=== PATIENT | female | born 1975 | race Caucasian/White ===

== ENCOUNTER 2018-11-29 07:57 | Observation (INO) | payer BC ==
[2018-11-29] MEDS ORDERED: ASPIRIN 81 MG PO STA (08:14)
--- NOTE | 2018-11-29 08:35 | ED ---
Chest Pain HPI - General Chief Complaint: Chest Pain Stated Complaint: chest pain Time Seen by Provider: 11/29/18 08:01 Source: patient, RN notes reviewed Mode of arrival: ambulatory Limitations: no limitations - History of Present Illness Initial Comments: 43-year-old female presents emergency Department with chief complaint of chest pressure. Patient states that she woke up and felt anxious and felt like something was sitting on her. Patient states that it only lasted less than a minute. Patient states that she is symptom-free at this time. Patient has no history of hypertension, hyperlipidemia, diabetes or smoking history. Patient states that she does take Vyvanse and omeprazole daily. Patient states she's had symptoms of waking up and feeling anxious in the past but never pressure like this. She denies any history of DVT or PE. No recent long distance traveling. Denies any diaphoretic episodes denies headache or dizziness. - Related Data Home Medications Medication Instructions Recorded Confirmed Lisdexamfetamine Dimesylate 70 mg PO QAM 05/27/16 11/29/18 [Vyvanse] Ibuprofen [Motrin Ib] 400 mg PO Q6H PRN 11/29/18 11/29/18 Omeprazole 20 mg PO DAILY 11/29/18 11/29/18 Allergies Allergy/AdvReac Type Severity Reaction Status Date / Time No Known Allergies Allergy Verified 11/29/18 08:45 Review of Systems ROS Statement: Those systems with pertinent positive or pertinent negative responses have been documented in the HPI. ROS Other: All systems not noted in ROS Statement are negative. EKG Findings - EKG Comments: EKG Findings:: EKG performed at 8:08 normal sinus rhythm with a rate of 97 SD 136 QRS 68 QT/QTC 336/426 Past Medical History Additional Past Medical History / Comment(s): pneumothorax History of Any Multi-Drug Resistant Organisms: None Reported Additional Past Surgical History / Comment(s): pneumothorax chest tube place Past Psychological History: Anxiety, Depression Smoking Status: Never smoker Past Alcohol Use History: None Reported Past Drug Use History: None Reported General Exam Limitations: no limitations General appearance: alert, in no apparent distress Head exam: Present: atraumatic, normocephalic, normal inspection Eye exam: Present: normal appearance, PERRL, EOMI. Absent: scleral icterus, conjunctival injection, periorbital swelling ENT exam: Present: normal exam, normal oropharynx, mucous membranes moist Neck exam: Present: normal inspection, full ROM. Absent: tenderness, meningismus, lymphadenopathy Respiratory exam: Present: normal lung sounds bilaterally. Absent: respiratory distress, wheezes, rales, rhonchi, stridor Cardiovascular Exam: Present: normal rhythm, tachycardia, normal heart sounds. Absent: systolic murmur, diastolic murmur, rubs, gallop, clicks GI/Abdominal exam: Present: soft, normal bowel sounds. Absent: distended, tenderness, guarding, rebound, rigid Extremities exam: Present: pedal edema Skin exam: Present: warm, dry, intact, normal color. Absent: rash Course Vital Signs 11/29/18 11/29/18 07:58 09:20 Temperature 98.7 F Pulse Rate 102 H 95 Respiratory 20 18 Rate Blood Pressure 159/117 147/110 O2 Sat by Pulse 99 98 Oximetry Chest Pain MDM - [facility] 43-year-old female presents for chest pain. Patient will be admitted for cardiac evaluation, started on heparin. Patient did have lab work, EKG and chest x-ray. Patient does have elevated BP which is abnormal for patient. Disposition Clinical Impression: Chest pain, Hypertension Disposition: ADMITTED IP TO THIS HOSP Condition: Stable Referrals: Raymon Roca MD [Primary Care Provider] - 1-2 days
[2018-11-29 08:39] LABS: Basophils % (A) 0 %; Eosinophils # (A) 0.2 k/uL (0-0.7); Eosinophils % (A) 2 %; HGB 13.3 gm/dL (11.4-16.0); Lymphocytes # (A) 1.3 k/uL (1.0-4.8); Lymphocytes % (A) 16 %; MCH 29.5 pg (25.0-35.0); MCHC 34.1 g/dL (31.0-37.0); MCV 86.5 fL (80.0-100.0); Mean Platelet Volume 6.8; Monocytes # (A) 0.5 k/uL (0-1.0); Monocytes % (A) 6 %; Neutrophils # (A) 5.8 k/uL (1.3-7.7); Neutrophils % (A) 73 %; Platelet Count 276 k/uL (150-450); RBC 4.51 m/uL (3.80-5.40); RDW 13.8 % (11.5-15.5); WBC 7.8 k/uL (3.8-10.6)
--- NOTE | 2018-11-29 08:47 | XR ---
EXAMINATION TYPE: XR chest 2V DATE OF EXAM: 11/29/2018 HISTORY: Chest Pain. REFERENCE: Previous study dated 05/27/2016. FINDINGS: The lungs remain clear. Pleural space are clear. The heart is not enlarged. IMPRESSION: NORMAL CHEST.
[2018-11-29 08:52] LABS: ALT 17 U/L (9-52); AST 15 U/L (14-36); Albumin 3.9 g/dL (3.5-5.0); Alkaline Phosphatase 117 U/L (38-126); Anion Gap 9 mmol/L; Blood Urea Nitrogen 16 mg/dL (7-17); Calcium 10.6 mg/dL (8.4-10.2); Carbon Dioxide 21 mmol/L (22-30); Chloride 109 mmol/L (98-107); Glucose 97 mg/dL (74-99); Magnesium 2.1 mg/dL (1.6-2.3); Potassium 4.3 mmol/L (3.5-5.1); Sodium 139 mmol/L (137-145); Total Bilirubin 0.2 mg/dL (0.2-1.3); Total Protein 6.8 g/dL (6.3-8.2)
[2018-11-29 08:53] LABS: D-Dimer 0.24 mg/L FEU (<0.60); Partial Thromboplastin Time 26.3 sec (22.0-30.0)
[2018-11-29 08:57] LABS: Creatine Kinase 29 U/L (30-135)
[2018-11-29 09:09] LABS: Creatine Kinase MB <0.2 ng/mL (0.0-2.4); Troponin I <0.012 ng/mL (0.000-0.034)
[2018-11-29] MEDS ORDERED: cloNIDine HCL 0.1 MG TAB PO STA (10:21)
[2018-11-29] MEDS ORDERED: HEPARIN SODIUM,PORCINE 5,000 UNIT/ML 1 ML VIAL IV ONE (10:25)
[2018-11-29] MEDS ORDERED: NITROGLYCERIN SL TABS 0.4 MG TAB SUBLINGUAL PRN (10:25)
[2018-11-29] MEDS ORDERED: HEPARIN SOD,PORK IN 0.45% NACL 25,000 UNIT in 0.45% NACL 1 250ML.BAG IV SCH (10:30)
[2018-11-29 13:58] VITALS: BMI 32.3
[2018-11-29 16:48] LABS: Creatine Kinase 24 U/L (30-135)
[2018-11-29 17:01] LABS: Creatine Kinase MB <0.2 ng/mL (0.0-2.4); Troponin I <0.012 ng/mL (0.000-0.034)
[2018-11-29] MEDS ORDERED: HYDROcodone/APAP 5-325MG 1 EACH TAB PO PRN (17:15)
[2018-11-29] MEDS ORDERED: ALPRAZolam 0.25 MG TAB PO PRN (17:15)
[2018-11-29] MEDS ORDERED: ACETAMINOPHEN TAB 500 MG TAB PO PRN (17:15)
[2018-11-29] MEDS ORDERED: IBUPROFEN 400 MG TAB PO PRN (17:15)
[2018-11-29] MEDS ORDERED: TEMAZEPAM 15 MG CAP PO PRN (17:15)
[2018-11-29 21:34] LABS: Creatine Kinase 24 U/L (30-135)
[2018-11-29 21:48] LABS: Creatine Kinase MB 0.2 ng/mL (0.0-2.4); Troponin I <0.012 ng/mL (0.000-0.034)
--- NOTE | 2018-11-30 00:43 | HP ---
HISTORY AND PHYSICAL DATE OF SERVICE: 11/29/2018 I am covering for Dr. Roca. CHIEF COMPLAINT: Chest pain. HISTORY OF PRESENT ILLNESS: This 43-year-old woman with a past medical history of multiple medical problems including history of pneumothorax, history of anxiety, depression being followed by Dr. Roca in the outpatient setting complaining of chest pain. The patient had complaints of a pressure type of chest pain in the anterior left side of the chest, without much radiation. The patient came to [facility] and was admitted for further evaluation and treatment. Patient apparently had a family history of chest pain , family history of coronary artery disease. There is no history of fever, rigors. No history of headache, loss of consciousness or seizures. The patient also had this type of pressure pain in the past. Patient never had any cardiac workup previously. Cardiology evaluation in progress. PAST MEDICAL HISTORY: Pneumothorax, anxiety, depression. MEDICATIONS: Prior to admission include home medications: 1. Omeprazole 20 mg b.i.d. 2. Motrin 400 mg q.6h p.r.n. 3. Vyvanse 70 mg q.a.m.. ALLERGIES: None. FAMILY HISTORY: History of coronary artery disease and hypertension in the family. SOCIAL HISTORY: No history of smoking. No history of alcohol. REVIEW OF SYSTEMS: ENT: No diminished vision. No diminished hearing. CARDIOVASCULAR: As mentioned earlier. RESPIRATORY: As mentioned earlier. GI no nausea or vomiting. : No dysuria. NERVOUS SYSTEM: No numbness or weakness. ALLERGY/IMMUNOLOGY: No asthma or hayfever. MUSCULOSKELETAL: As mentioned earlier. HEMATOLOGY/ONCOLOGY: No history of anemia. ENDOCRINE: No history of diabetes or hypothyroidism. CONSTITUTIONAL: As mentioned earlier. Dermatology: Negative. Rheumatology: Negative. Psychiatry: As mentioned earlier. PHYSICAL EXAMINATION: GENERAL: Alert, oriented x3. VITAL SIGNS: Pulse 94, blood pressure 131/86, respiration 16, temperature 98.1, pulse ox 99% on room air. HEENT is conjunctivae normal. Oral mucosa moist. NECK is no jugular venous distention. No carotid bruit. No lymph node enlargement. CARDIOVASCULAR SYSTEM: S1, S2. RESPIRATORY: Breath sounds diminished in the bases. No rhonchi. No crackles. ABDOMEN: Soft, nontender. No mass palpable. LEGS: No edema. No swelling. NERVOUS SYSTEM: Higher functions as mentioned earlier. Moves all four extremities. Lymphatics: No lymph nodes palpable in the neck, axillae or groin. SKIN: No ulcer, no rash. No bleeding. LABS: CBC within normal limits. CO2 is 21 and calcium is 10.6. ASSESSMENT: 1. Chest pain, possible unstable angina. 2. Mild increased calcium. 3. History of pneumothorax. 4. History of anxiety and depression. RECOMMENDATIONS AND DISCUSSION: In this 43-year-old woman who presented with multiple complex medical issues, we will monitor the patient closely, unstable angina protocol, rule out myocardial infarction, cardiology consultation. Possible stress test. Guarded prognosis because of multiple complex medical issues. Further recommendations to follow. Keep the patient n.p.o. after midnight. Copy of dictation forwarded to Dr. Roca who is the primary physician. AXEL / RICARDO: [id number] / MTDD
[2018-11-30] MEDS ORDERED: PANTOPRAZOLE 40 MG TABLET PO SCH ×2 (07:30→09:00)
[2018-11-30 07:41] LABS: Basophils % (A) 1 %; Eosinophils # (A) 0.2 k/uL (0-0.7); Eosinophils % (A) 3 %; HCT 39.7 % (34.0-46.0); HGB 12.5 gm/dL (11.4-16.0); Lymphocytes # (A) 1.6 k/uL (1.0-4.8); Lymphocytes % (A) 23 %; MCH 27.6 pg (25.0-35.0); MCHC 31.5 g/dL (31.0-37.0); MCV 87.7 fL (80.0-100.0); Mean Platelet Volume 6.7; Monocytes # (A) 0.3 k/uL (0-1.0); Monocytes % (A) 5 %; Neutrophils # (A) 4.6 k/uL (1.3-7.7); Neutrophils % (A) 67 %; Platelet Count 300 k/uL (150-450); RBC 4.52 m/uL (3.80-5.40); WBC 6.8 k/uL (3.8-10.6)
[2018-11-30 07:54] LABS: Anion Gap 6 mmol/L; Blood Urea Nitrogen 11 mg/dL (7-17); Calcium 10.2 mg/dL (8.4-10.2); Carbon Dioxide 24 mmol/L (22-30); Chloride 111 mmol/L (98-107); Cholesterol 169 mg/dL (<200); Glucose 100 mg/dL (74-99); HDL Cholesterol 46 mg/dL (40-60); LDL Cholesterol,Calculated 85 mg/dL (0-99); Potassium 4.2 mmol/L (3.5-5.1); Sodium 141 mmol/L (137-145); Triglycerides 189 mg/dL (<150)
[2018-11-30 08:07] VITALS: RESP 18
--- NOTE | 2018-11-30 08:16 | P.HPIM ---
History of Present Illness H&P Date: 11/30/18 Chief Complaint: Chest pressure This is a 43-year-old white female with known history tension disorder who has struggled with depression in the past who states for the last several days that she's been waking up after falling asleep with chest pain. She states it is mainly fleeting but sometimes wakes her up. However she became much more concerned as she had an episode where she woke up in the morning and had chest pain with some radiation to the right axillary area. The patient came in after this for appropriate observation. The patient states history of hypertension and most of her family members. The patient has an underlying history of attention deficit disorder which is been fairly stable. Blood pressure my office fairly stable. No voiding difficulties. No significant diaphoresis. Pain was not necessary relieved by any medication and perform any consistent action. Review of Systems Constitutional: Denies chills, Denies fever Eyes: denies blurred vision, denies pain Ears, nose, mouth and throat: Denies headache, Denies sore throat Cardiovascular: Reports chest pain Gastrointestinal: Denies abdominal pain, Denies diarrhea, Denies nausea, Denies vomiting Genitourinary: Denies dysuria, Denies hematuria Musculoskeletal: Denies myalgias Past Medical History Additional Past Medical History / Comment(s): pneumothorax-20 years ago. History of Any Multi-Drug Resistant Organisms: None Reported Additional Past Surgical History / Comment(s): pneumothorax chest tube place Past Anesthesia/Blood Transfusion Reactions: No Reported Reaction, Unable to Obtain Past Psychological History: Anxiety, Depression Smoking Status: Never smoker Past Alcohol Use History: None Reported Past Drug Use History: None Reported - Past Family History Mother Family Medical History: Coronary Artery Disease (CAD), Hypertension Father Family Medical History: Myocardial Infarction (MS) Additional Family Medical History / Comment(s): at age 53. Medications and Allergies Home Medications Medication Instructions Recorded Confirmed Type Lisdexamfetamine Dimesylate 70 mg PO QAM 05/27/16 11/29/18 History [Vyvanse] Ibuprofen [Motrin Ib] 400 mg PO Q6H PRN 11/29/18 11/29/18 History Omeprazole 20 mg PO DAILY 11/29/18 11/29/18 History Allergies Allergy/AdvReac Type Severity Reaction Status Date / Time No Known Allergies Allergy Verified 11/29/18 08:45 Physical Exam Vitals: Vital Signs Temp Pulse Pulse Resp BP BP Pulse Ox 11/30/18 07:30 98.2 F 85 18 129/78 96 11/30/18 03:44 98.3 F 100 16 126/91 98 11/30/18 03:38 16 11/30/18 00:00 16 11/29/18 23:45 98.4 F 92 16 142/87 98 11/29/18 20:00 16 11/29/18 19:42 98.1 F 94 16 131/86 99 11/29/18 16:00 97.8 F 85 16 135/89 98 11/29/18 13:18 97.8 F 93 18 150/97 98 11/29/18 12:42 97.8 F 84 18 144/97 100 11/29/18 12:00 80 18 148/99 97 11/29/18 11:00 95 18 159/94 96 11/29/18 09:20 95 18 147/110 98 Intake and Output 11/29/18 11/30/18 11/30/18 22:59 06:59 14:59 Intake Total 317.992 Balance 317.992 Intake: Intake, IV Titration 57.992 Amount Heparin Sod,Pork in 0.45% 57.992 NaCl 25,000 unit In 0.45 % NaCl 1 250ml.bag @ 11 UNITS/KG/HR 9.97 mls/hr IV .Q24H [facility] Rx#: [id number] Oral 260 Other: # Voids 1 1 - Constitutional General appearance: no acute distress, obese - EENT Eyes: EOMI - Neck Neck: no lymphadenopathy - Respiratory Respiratory: bilateral: CTA - Cardiovascular Rhythm: regular Heart sounds: normal: S1, S2 Abnormal Heart Sounds: no S3 Gallop - Gastrointestinal General gastrointestinal: soft, no tenderness - Psychiatric Psychiatric: A&O x's 3, appropriate affect, intact judgment & insight Results CBC & Chem 7: 11/30/18 07:11 11/30/18 07:11 Labs: Abnormal Lab Results - Last 24 Hours (Table) 11/29/18 11/29/18 11/29/18 Range/Units 08:20 08:20 16:11 APTT (22.0-30.0) sec Chloride 109 H (98-107) mmol/L Carbon Dioxide 21 L (22-30) mmol/L Glucose (74-99) mg/dL Calcium 10.6 H (8.4-10.2) mg/dL Total Creatine Kinase 29 L 24 L (30-135) U/L Triglycerides (<150) mg/dL 11/29/18 11/29/18 11/30/18 Range/Units 16:11 20:34 07:11 APTT 51.8 H (22.0-30.0) sec Chloride 111 H (98-107) mmol/L Carbon Dioxide (22-30) mmol/L Glucose 100 H (74-99) mg/dL Calcium (8.4-10.2) mg/dL Total Creatine Kinase 24 L (30-135) U/L Triglycerides 189 H (<150) mg/dL 11/30/18 Range/Units 07:11 APTT 36.7 H (22.0-30.0) sec Chloride (98-107) mmol/L Carbon Dioxide (22-30) mmol/L Glucose (74-99) mg/dL Calcium (8.4-10.2) mg/dL Total Creatine Kinase (30-135) U/L Triglycerides (<150) mg/dL Thrombosis Risk Factor Assmnt - Choose All That Apply Any of the Below Risk Factors Present?: No Other congenital or acquired thrombophilia - If yes, enter type in comment: No Assessment and Plan (1) History of attention deficit disorder Current Visit: Yes Status: Acute Code(s): Z86.59 - PERSONAL HISTORY OF OTHER MENTAL AND BEHAVIORAL DISORDERS SNOMED Code(s): 510668406 (2) Chest pain Current Visit: Yes Status: Acute Code(s): R07.9 - CHEST PAIN, UNSPECIFIED SNOMED Code(s): 00169185 (3) Hypertension Current Visit: Yes Status: Acute Code(s): I10 - ESSENTIAL (PRIMARY) HYPERTENSION SNOMED Code(s): 71772649 Plan: Reconcile medications as necessary. Rule out myocardial infarction. Appreciate cardiology input. Watch blood pressure closely Probable stress testing given her family history of hypertension. See orders otherwise. Time with Patient: Greater than 30
[2018-11-30] MEDS ORDERED: ASPIRIN 325 MG TAB PO SCH (09:00)
[2018-11-30] MEDS ORDERED: NON-FORMULARY DRUG (Lisdexamfetamine Dimesylate [Vyvanse] 70 MG) PO SCH (09:00)
[2018-11-30 12:30] VITALS: BP 136/90; PULSE 112; TEMP 98
--- NOTE | 2018-11-30 14:17 | CONS ---
CONSULTATION This is a 43-year-old lady who has had some element of anxiety as well. She also has a question of attention deficit disorder and takes Vyvanse 70 mg every morning and also omeprazole for possible gastroesophageal reflux disease. She is usually reasonably active. Does not have any significant risk factors other than a family history of premature CAD and some anxiety disorder. She developed an episode when she described it as a heavy pressure in the chest that lasted maybe less than 30 seconds. Then later on, she felt very anxious and had episodes of what she described as a tightness and pressure in the left arm and felt anxious and came into the hospital. After arrival, she was free of any symptoms. She has had normal troponins. She is resting comfortably. Her blood pressure was elevated when she came in, but it has normalized now. She is not hypertensive and has not had any elevated blood pressure issues. The last pressure here was about 140/80, and when we examined her, it was more in the range of 130/80. She is resting comfortably without symptoms at the time of my evaluation. PAST MEDICAL HISTORY: Remarkable for some attention deficit disorder type picture and also has had some anxiety issues. No hypertension, diabetes, myocardial infarction or CVA. The patient does have a family history of premature CAD. LAB DATA: Revealed the troponins are normal. Renal function is normal. D-dimer is also normal. Hemoglobin and platelet count were in the normal range. PHYSICAL EXAMINATION: Blood pressure is about 128/78, pulse rate is about 70 per minute and regular. HEENT unremarkable. Fundus was not examined by me. Neck is supple. No JVD. I do not hear a carotid bruit. There is no thyromegaly. Heart exam reveals S1, S2 heard normally without a rub murmur or gallop. Lungs are clear. Abdomen is soft, nontender. Lower extremities reveal normal pulses. No edema. Central nervous system is normal. EKG revealed a sinus mechanism without any acute changes. IMPRESSION: 1. Atypical chest pain. 2. Anxiety. 3. Question of attention deficit disorder on amphetamine preparation. RECOMMENDATIONS: I am recommending that we will perform a regular stress test and echo and if these are normal she can be discharged and I have advised her to talk to her PCP regarding the continued need for her amphetamine preparation that she is currently taking. Thank you very much for the consult. MMODL / IJN: [id number] /
--- NOTE | 2018-12-01 07:09 | EST ---
EXERCISE STRESS DATE OF SERVICE: 11/30/2018 AGE: 43 SEX: Female HT: 66" WT: 201 PROTOCOL: Patric STAGE: II DURATION OF EXERCISE: 6 minutes HEART RATE REST: 92 BLOOD PRESSURE REST: 126/58 MAXIMUM HEART RATE ACHIEVED: 160 MAXIMUM BLOOD PRESSURE: 183/108 85% MPHR: 152 100% MPHR: 175 METS: 7.3 INDICATIONS: Chest pain. CLINICAL INFORMATION: Baseline EKG revealed normal sinus rhythm without significant ST-T changes. Patient walked for 6 minutes on a standard Patric protocol, achieved a maximal heart rate of 160 beats per minute which is more than 85% of predicted maximal. She developed fatigue and shortness of breath but did not have angina. EKG did not reveal any ST-segment changes to indicate ischemia. By EKG criteria, this is a negative stress test with fair exercise capacity. There was no angina or arrhythmia. AXEL / UNIQUEN: [id number] /
--- NOTE | 2018-12-01 12:49 | ECHOF ---
Referral Reason:chest pain MEASUREMENTS -------- HEIGHT: 167.6 cm WEIGHT: 91.2 kg BP: 129/78 RVIDd: 2.5 cm (< 3.3) IVSd: 1.2 cm (0.6 - 1.1) LVIDd: 3.7 cm (3.9 - 5.3) LVPWd: 1.3 cm (0.6 - 1.1) IVSs: 1.4 cm LVIDs: 2.4 cm LVPWs: 1.4 cm LAESV Index (A-L): 10.01 ml/m Ao Diam: 2.9 cm (2.0 - 3.7) AV Cusp: 1.6 cm (1.5 - 2.6) LA Diam: 3.1 cm (2.7 - 3.8) EPSS: 0.4 cm MV E Gume: 0.62 m/s MV DecT: 246 ms MV A Gume: 0.75 m/s MV E/A Ratio: 0.83 RAP: 5.00 mmHg RVSP: 33.96 mmHg MV EF SLOPE: 126.25 mm/s (70 - 150) MV EXCURSION: 1.06 cm (> 18.000) FINDINGS -------- Sinus rhythm. This was a technically adequate study. The left ventricular size is normal. There is mild concentric left ventricular hypertrophy. Overa ll left ventricular systolic function is normal with, an EF between 55 - 60 %. The right ventricle is normal in size and function. Normal LA size by volume 22+/-6 ml/m2. The right atrium is normal in size. The aortic valve is trileaflet, and appears structurally normal. No aortic stenosis or regurgitation. The mitral valve is normal. There is trace mitral regurgitation. Trace tricuspid regurgitation present. There is borderline pulmonary hypertension. The right vent ricular systolic pressure, as measured by Doppler, is 33.96mmHg. Trace/mild (physiologic) pulmonic regurgitation. The aortic root size is normal. Normal inferior vena cava with normal inspiratory collapse consistent with estimated right atrial pre ssure of 5 mmHg. There is no pericardial effusion. CONCLUSIONS -------- 1. Sinus rhythm. 2. This was a technically adequate study. 3. The left ventricular size is normal. 4. There is mild concentric left ventricular hypertrophy. 5. Overall left ventricular systolic function is normal with, an EF between 55 - 60 %. 6. Normal LA size by volume 22+/-6 ml/m2. 7. The aortic valve is trileaflet, and appears structurally normal. No aortic stenosis or regurgitati on. 8. There is trace mitral regurgitation. 9. Trace tricuspid regurgitation present. 10. There is borderline pulmonary hypertension. 11. The right ventricular systolic pressure, as measured by Doppler, is 33.96mmHg. 12. Trace/mild (physiologic) pulmonic regurgitation. 13. The aortic root size is normal. 14. There is no pericardial effusion. WEB CONTENT DEVELOPER: Dionicio Davis RDCS
--- NOTE | 2018-12-01 23:03 | P.DS ---
Providers Date of admission: 11/29/18 12:03 Attending physician: Raymon Roca Consults: 11/29/18 10:26 Consult Physician Urgent Consulting Provider: Jorge Bloom Consult Reason/Comments: chest pain Do you want consulting provider notified?: Yes Primary care physician: Raymon Roca - Discharge Diagnosis(es) (1) History of attention deficit disorder Status: Acute (2) Chest pain Status: Acute (3) Hypertension Status: Acute Hospital Course: This is a discharge summary on a 43-year-old white female who is essentially admitted for atypical chest pain. Stress testing was negative and she is discharged in stable condition. We will have to ascertain whether her history of hypertension in her family is an issue and the element of using her stimulant for ADD could be also secondary element. She is to follow-up with me in 7 days. Patient Condition at Discharge: Stable Plan - Discharge Summary Discharge Rx Participant: No New Discharge Prescriptions: No Action Lisdexamfetamine Dimesylate [Vyvanse] 70 mg PO QAM Omeprazole 20 mg PO DAILY Ibuprofen [Motrin Ib] 400 mg PO Q6H PRN PRN Reason: Pain Discharge Medication List Lisdexamfetamine Dimesylate [Vyvanse] 70 mg PO QAM 05/27/16 [History] Ibuprofen [Motrin Ib] 400 mg PO Q6H PRN 11/29/18 [History] Omeprazole 20 mg PO DAILY 11/29/18 [History] Follow up Appointment(s)/Referral(s): Raymon Roca MD [Primary Care Provider] - 1 Week Patient Instructions/Handouts: Chest Pain (GEN) Discharge Disposition: HOME SELF-CARE
== END 2018-11-30 14:44 | disposition home or self-care (01) ==
LOC: EC 07:57 → 1SOBS 12:03
PROVIDERS: ADMIT Family Medicine; ATTEND Family Medicine
DX: R07.89 Other chest pain (principal); I10 Essential (primary) hypertension; R79.89 Other specified abnormal findings of blood chemistry; F41.9 Anxiety disorder, unspecified; F32.9 Major depressive disorder, single episode, unspecified; F90.9 Attention-deficit hyperactivity disorder, unspecified type; Z87.09 Personal history of other diseases of the respiratory system; Z79.899 Other long term (current) drug therapy; Z82.49 Family history of ischemic heart disease and other diseases of the circulatory system
CPT/HCPCS: 93005 ×2; 96366 ×3; 96376; 96365; 99285; 36415; 93017; 93306; 85379; 80061; 80053; 80048; 82550; 82553; 83735; 84484; 85025 ×2; 85610; 85730 ×2; 71046; G0378 ×2; J1644 ×2

== ENCOUNTER → 2019-02-10 | Outpatient (CLI) | payer BC | END | disposition home or self-care (01) | LOC: RADECHMAIN 12:33 | PROVIDERS: ATTEND Family Medicine | DX: I49.3 Ventricular premature depolarization (principal) | CPT/HCPCS: 93225; 93226 ==

== ENCOUNTER → 2019-02-24 | Outpatient (CLI) | payer BC ==
--- NOTE | 2019-02-24 14:10 | CT ---
EXAMINATION TYPE: CT brain wo con DATE OF EXAM: 02/24/2019 COMPARISON: None INDICATION: Migraines for 18+ years. Becoming more frequent and more painful DLP: 1180.9 mGycm, Automated exposure control for dose reduction was used. CONTRAST: None CT of the brain is performed utilizing 3 mm thick sections through the posterior fossa and 3 mm thick sections through the remaining calvarium. Study is performed within 24 hours of arrival to the hosp [facility]. No abnormal hyperdensity is present to suggest an acute intracranial hemorrhage. No mass lesion is evident. No acute infarcts are evident. Ventricles and sulci are appropriate for the patient age. Paranasal sinuses and mastoid air cells within the [id number] are clear. IMPRESSIONS: 1. Normal CT Brain 2. Consider MRI for additional evaluation.
== END ==
LOC: RADCTMAIN 12:29
PROVIDERS: ATTEND Family Medicine
DX: R51 Headache (principal)
CPT/HCPCS: 70450

== ENCOUNTER 2019-03-22 01:40 | Emergency (ER) | payer BC ==
--- NOTE | 2019-03-22 02:12 | ED ---
Arrhythmia/Palpitations HPI - General Chief Complaint: Arrhythmia/Palpitations Stated Complaint: Tachycardia Time Seen by Provider: 03/22/19 01:55 Source: patient, family Mode of arrival: ambulatory Limitations: no limitations - History of Present Illness Initial Comments: 43yo female presenting for racing heart. Pt states that she woke up feeling like her heart was racing. Patient states that she currently has an event monitor and is followed by motor equipment lieutenant , windshield technician. She states she has had sensation of racing heart on and off for the past 2months and was hospitalized at the onset in November here at [facility]. At that time patient states she had a normal echo and stress test. Pt denies any chest pain or SOB associated with the racing heart, denies dizziness or syncope. Pt did state her BP has been elevated today more than usual pt recently switched to metoprolol succinate ER 12.5 BID. Pt states she has a family history of CAD. Pt denies any leg swelling, nausea, back pain. She states she has had slight head pressure, denies headache and thought this was due to elevation of BP, denies visual changes, or diplopia. Pt states her next appointment with Dr. Blackmon is on the 06 of April. Remaining ROS (-), patient denies fever chills abdominal pain vomiting diarrhea numbness tingling upper extremity paresthesias or jaw pain, recent travel, recent surgeries,history DVT/PE, clotting disorder, hemoptysis. - Related Data Home Medications Medication Instructions Recorded Confirmed Ibuprofen [Motrin Ib] 400 mg PO Q6H PRN 11/29/18 03/22/19 ALPRAZolam [Xanax] 0.25 mg PO BID PRN 03/22/19 03/22/19 Metoprolol Succinate (ER) [Toprol 12.5 mg PO BID 03/22/19 03/22/19 Xl] Pantoprazole Sodium [Protonix] 40 mg PO DAILY 03/22/19 03/22/19 Allergies Allergy/AdvReac Type Severity Reaction Status Date / Time No Known Allergies Allergy Verified 03/22/19 01:48 Review of Systems ROS Statement: Those systems with pertinent positive or pertinent negative responses have been documented in the HPI. ROS Other: All systems not noted in ROS Statement are negative. Past Medical History Additional Past Medical History / Comment(s): pneumothorax-20 years ago., tachycardia History of Any Multi-Drug Resistant Organisms: None Reported Additional Past Surgical History / Comment(s): pneumothorax chest tube place Past Anesthesia/Blood Transfusion Reactions: No Reported Reaction, Unable to Obtain Past Psychological History: Anxiety, Depression Smoking Status: Never smoker Past Alcohol Use History: None Reported Past Drug Use History: None Reported - Past Family History Mother Family Medical History: Coronary Artery Disease (CAD), Hypertension Father Family Medical History: Myocardial Infarction ([place]) Additional Family Medical History / Comment(s): at age 53. General Exam - General Exam Comments Initial Comments: General: The patient is awake and alert, in no distress, and does not appear acutely ill. Eye: Pupils are equal, round and reactive to light, extra-ocular movements are intact. No nystagmus. There is normal conjunctiva bilaterally. No signs of icterus. Ears, nose, mouth and throat: There are moist mucous membranes and no oral lesions. Neck: The neck is supple, there is no tenderness or JVD. Cardiovascular: There is a regular rate and rhythm. No murmur, rub or gallop is appreciated. Respiratory: Lungs are clear to auscultation, respirations are non-labored, breath sounds are equal. No wheezes, stridor, rales, or rhonchi. Gastrointestinal: Soft, non-distended, non-tender abdomen without masses or organomegaly noted. There is no rebound or guarding present. No CVA tenderness. Bowel sounds are unremarkable. Musculoskeletal: Normal ROM, no tenderness. Strength 5/5. Sensation intact. DP pulses equal bilaterally 2+. Neurological: A&O x 3. CN II-XII intact, There are no obvious motor or sensory deficits. Coordination appears grossly intact. Speech is normal. Skin: Skin is warm and dry and no rashes or lesions are noted. No LE edema. (-) Homans. Psychiatric: Cooperative, appropriate mood & affect, normal judgment. Limitations: no limitations Course Vital Signs 03/22/19 03/22/19 01:43 02:40 Temperature 98.3 F Pulse Rate 85 78 Respiratory 20 16 Rate Blood Pressure 134/100 140/96 O2 Sat by Pulse 98 99 Oximetry EKG Findings - EKG Comments: EKG Findings:: A 12-lead EKG was performed and shows the following: Rate is 83bpm, and rhythm is normal sinus. There are normal QRS complexes and normal R- wave progression. ST segments have no elevation or depression, and IA segments appear normal. IA interval 170 ms, QRS duration 76 ms, QT/QTC 376/441 ms. EKG interpretted by myself and Dr. Roger Medical Decision Making - Medical Decision Making 43yo with history of palpitations presenting today for cc of hear racing. Pt states HR was 140 prior to arrival. HR WNL upon arrival. Pt denies current symptoms. Pt BP elevated. Pt denies experiencing CP this evening, no SOB or dizziness. EKG no acute findings. Pt has event monitor in place and has been evaluated by windshield technician. 12/12 negative stress test and echo. No murmur on exam. No LE swelling. D-dimer and troponin WNL. Low Wells score. Pt appears well there are no signs of acute distress and CXR WNL. At this time given patient is hemodynamically stable I feel she is stable for discharge with outpat ient cardiology f/u and return to the ER for returning symptoms. Pt is agreeable with care plan and discharge today. - Lab Data Result diagrams: 03/22/19 02:30 03/22/19 02:30 Lab Results 03/22/19 03/22/19 03/22/19 Range/Units 02:30 02:30 02:30 WBC 6.3 (3.8-10.6) k/uL RBC 4.65 (3.80-5.40) m/uL Hgb 13.7 (11.4-16.0) gm/dL Hct 40.9 (34.0-46.0) % MCV 88.0 (80.0-100.0) fL MCH 29.4 (25.0-35.0) pg MCHC 33.4 (31.0-37.0) g/dL RDW 14.9 (11.5-15.5) % Plt Count 246 (150-450) k/uL Neutrophils % 66 % Lymphocytes % 24 % Monocytes % 6 % Eosinophils % 3 % Basophils % 1 % Neutrophils # 4.1 (1.3-7.7) k/uL Lymphocytes # 1.5 (1.0-4.8) k/uL Monocytes # 0.4 (0-1.0) k/uL Eosinophils # 0.2 (0-0.7) k/uL Basophils # 0.0 (0-0.2) k/uL PT 10.9 (9.0-12.0) sec INR 1.0 (<1.2) APTT 27.7 (22.0-30.0) sec D-Dimer 0.30 (<0.60) mg/L FEU Sodium 139 (137-145) mmol/L Potassium 4.2 (3.5-5.1) mmol/L Chloride 109 H (98-107) mmol/L Carbon Dioxide 22 (22-30) mmol/L Anion Gap 8 mmol/L BUN 17 (7-17) mg/dL Creatinine 0.64 (0.52-1.04) mg/dL Est GFR (CKD-EPI)AfAm >90 (>60 ml/min/1.73 sqM) Est GFR (CKD-EPI)NonAf >90 (>60 ml/min/1.73 sqM) Glucose 93 (74-99) mg/dL Calcium 10.9 H (8.4-10.2) mg/dL Magnesium 2.2 (1.6-2.3) mg/dL Total Bilirubin 0.4 (0.2-1.3) mg/dL AST 15 (14-36) U/L ALT 29 (9-52) U/L Alkaline Phosphatase 95 (38-126) U/L Troponin I (0.000-0.034) ng/mL Total Protein 6.9 (6.3-8.2) g/dL Albumin 4.2 (3.5-5.0) g/dL TSH 3.800 (0.465-4.680) mIU/L Urine Color Urine Appearance (Clear) Urine pH (5.0-8.0) Ur Specific Row[place] (1.001-1.035) Urine Protein (Negative) Urine Glucose (UA) (Negative) Urine Ketones (Negative) Urine Blood (Negative) Urine Nitrite (Negative) Urine Bilirubin (Negative) Urine Urobilinogen (<2.0) mg/dL Ur Leukocyte Esterase (Negative) Urine Opiates Screen (NotDetected) Ur Oxycodone Screen (NotDetected) Urine Methadone Screen (NotDetected) Ur Propoxyphene Screen (NotDetected) Ur Barbiturates Screen (NotDetected) U Tricyclic Antidepress (NotDetected) Ur Phencyclidine Scrn (NotDetected) Ur Amphetamines Screen (NotDetected) U Methamphetamines Scrn (NotDetected) U Benzodiazepines Scrn (NotDetected) Urine Cocaine Screen (NotDetected) U Marijuana (THC) Screen (NotDetected) 03/22/19 03/22/19 Range/Units 02:30 02:30 WBC (3.8-10.6) k/uL RBC (3.80-5.40) m/uL Hgb (11.4-16.0) gm/dL Hct (34.0-46.0) % MCV (80.0-100.0) fL MCH (25.0-35.0) pg MCHC (31.0-37.0) g/dL RDW (11.5-15.5) % Plt Count (150-450) k/uL Neutrophils % % Lymphocytes % % Monocytes % % Eosinophils % % Basophils % % Neutrophils # (1.3-7.7) k/uL Lymphocytes # (1.0-4.8) k/uL Monocytes # (0-1.0) k/uL Eosinophils # (0-0.7) k/uL Basophils # (0-0.2) k/uL PT (9.0-12.0) sec INR (<1.2) APTT (22.0-30.0) sec D-Dimer (<0.60) mg/L FEU Sodium (137-145) mmol/L Potassium (3.5-5.1) mmol/L Chloride (98-107) mmol/L Carbon Dioxide (22-30) mmol/L Anion Gap mmol/L BUN (7-17) mg/dL Creatinine (0.52-1.04) mg/dL Est GFR (CKD-EPI)AfAm (>60 ml/min/1.73 sqM) Est GFR (CKD-EPI)NonAf (>60 ml/min/1.73 sqM) Glucose (74-99) mg/dL Calcium (8.4-10.2) mg/dL Magnesium (1.6-2.3) mg/dL Total Bilirubin (0.2-1.3) mg/dL AST (14-36) U/L ALT (9-52) U/L Alkaline Phosphatase (38-126) U/L Troponin I <0.012 (0.000-0.034) ng/mL Total Protein (6.3-8.2) g/dL Albumin (3.5-5.0) g/dL TSH (0.465-4.680) mIU/L Urine Color Colorless Urine Appearance Clear (Clear) Urine pH 5.5 (5.0-8.0) Ur Specific Row[place] 1.007 (1.001-1.035) Urine Protein Negative (Negative) Urine Glucose (UA) Negative (Negative) Urine Ketones Negative (Negative) Urine Blood Negative (Negative) Urine Nitrite Negative (Negative) Urine Bilirubin Negative (Negative) Urine Urobilinogen <2.0 (<2.0) mg/dL Ur Leukocyte Esterase Negative (Negative) Urine Opiates Screen Not Detected (NotDetected) Ur Oxycodone Screen Not Detected (NotDetected) Urine Methadone Screen Not Detected (NotDetected) Ur Propoxyphene Screen Not Detected (NotDetected) Ur Barbiturates Screen Not Detected (NotDetected) U Tricyclic Antidepress Not Detected (NotDetected) Ur Phencyclidine Scrn Not Detected (NotDetected) Ur Amphetamines Screen Not Detected (NotDetected) U Methamphetamines Scrn Not Detected (NotDetected) U Benzodiazepines Scrn Detected H (NotDetected) Urine Cocaine Screen Not Detected (NotDetected) U Marijuana (THC) Screen Not Detected (NotDetected) Disposition Clinical Impression: Heart palpitations Disposition: HOME SELF-CARE Condition: Good Instructions (If sedation given, give patient instructions): Heart Palpitations (ED) Additional Instructions: Please use medication as discussed. Please follow-up with motor equipment lieutenant within the next week in primary care provider within the next 2 days. Please return to emergency room if the symptoms increase or worsen or for any other concerns. Is patient prescribed a controlled substance at d/c from ED?: No Referrals: Raymon Roca MD [Primary Care Provider] - 1-2 days Time of Disposition: 03:38
--- NOTE | 2019-03-22 02:28 | XR ---
EXAM: XR Chest, 2 Views CLINICAL HISTORY: dysrhythmia TECHNIQUE: Frontal and lateral views of the chest. COMPARISON: 11/29/2018 FINDINGS: Lungs: Unremarkable. No consolidation. Pleural space: Unremarkable. No pneumothorax. Heart: Unremarkable. No cardiomegaly. Mediastinum: Unremarkable. Bones/joints: No acute osseous abnormality. IMPRESSION: No acute cardiopulmonary process.
[2019-03-22] MEDS ORDERED: hydrALAZINE HCL 20 MG/ML 1 ML VIAL IVP STA (02:32)
[2019-03-22 02:40] VITALS: PULSE 78; RESP 16
[2019-03-22 02:49] LABS: Appearance,Urine Clear (Clear); Bilirubin,Urine Negative (Negative); Blood,Urine Negative (Negative); Color,Urine Colorless; Glucose,Urine (UA) Negative (Negative); Ketones,Urine Negative (Negative); Leukocyte Esterase,Urine Negative (Negative); Nitrite,Urine Negative (Negative); PH, Urine 5.5 (5.0-8.0); Protein,Urine Negative (Negative); Specific Gravity,Urine 1.007 (1.001-1.035); Urobilinogen,Urine <2.0 mg/dL (<2.0)
[2019-03-22 02:55] LABS: Basophils % (A) 1 %; Eosinophils # (A) 0.2 k/uL (0-0.7); Eosinophils % (A) 3 %; HCT 40.9 % (34.0-46.0); HGB 13.7 gm/dL (11.4-16.0); Lymphocytes # (A) 1.5 k/uL (1.0-4.8); Lymphocytes % (A) 24 %; MCH 29.4 pg (25.0-35.0); MCHC 33.4 g/dL (31.0-37.0); Mean Platelet Volume 7.7; Monocytes # (A) 0.4 k/uL (0-1.0); Monocytes % (A) 6 %; Neutrophils # (A) 4.1 k/uL (1.3-7.7); Neutrophils % (A) 66 %; Platelet Count 246 k/uL (150-450); RBC 4.65 m/uL (3.80-5.40); RDW 14.9 % (11.5-15.5); WBC 6.3 k/uL (3.8-10.6)
[2019-03-22 02:59] LABS: Amphetamine Screen,Urine Not Detected (NotDetected); Barbiturate Screen,Urine Not Detected (NotDetected); Benzodiazepines Screen,Urine Detected (NotDetected); Cocaine Screen,Urine Not Detected (NotDetected); Methadone Screen, Urine Not Detected (NotDetected); Opiate Screen,Urine Not Detected (NotDetected); Oxycodone Screen, Urine Not Detected (NotDetected); Phencyclidine Screen,Urine Not Detected (NotDetected); Tricyclic Antidepressant,Urine Not Detected (NotDetected); Urn Cannabinoid Scrn Not Detected (NotDetected)
[2019-03-22 03:02] LABS: D-Dimer 0.3 mg/L FEU (<0.60); Partial Thromboplastin Time 27.7 sec (22.0-30.0); Prothrombin Time 10.9 sec (9.0-12.0)
[2019-03-22 03:04] LABS: ALT 29 U/L (9-52); AST 15 U/L (14-36); Albumin 4.2 g/dL (3.5-5.0); Alkaline Phosphatase 95 U/L (38-126); Anion Gap 8 mmol/L; Blood Urea Nitrogen 17 mg/dL (7-17); Calcium 10.9 mg/dL (8.4-10.2); Carbon Dioxide 22 mmol/L (22-30); Chloride 109 mmol/L (98-107); Glucose 93 mg/dL (74-99); Magnesium 2.2 mg/dL (1.6-2.3); Potassium 4.2 mmol/L (3.5-5.1); Sodium 139 mmol/L (137-145); Total Bilirubin 0.4 mg/dL (0.2-1.3); Total Protein 6.9 g/dL (6.3-8.2)
[2019-03-22] MEDS ORDERED: METOPROLOL SUCCINATE (ER) 25 MG TAB.ER.24H PO STA (03:32)
[2019-03-22 04:01] VITALS: BP 143/96; TEMP 97.9
== END 2019-03-22 04:03 | disposition home or self-care (01) ==
LOC: EC 01:40
DX: R00.2 Palpitations (principal); Z79.899 Other long term (current) drug therapy; Z53.8 Procedure and treatment not carried out for other reasons
CPT/HCPCS: 36415; 71046; 80053; 80306; 81003; 83735; 84443; 84484; 85025; 85379; 85610; 85730; 93005; 99285

== ENCOUNTER 2019-06-18 13:17 | Emergency (ER) | payer BC ==
[2019-06-18 13:35] VITALS: BP 136/94; PULSE 77; RESP 18; TEMP 98.3
--- NOTE | 2019-06-18 14:29 | XR ---
EXAMINATION TYPE: XR chest 2V DATE OF EXAM: 06/18/2019 COMPARISON: 03/22/2019 HISTORY: Chest pain TECHNIQUE: Frontal and lateral views of the chest are obtained. FINDINGS: There is no focal air space opacity. No evidence for pneumothorax. No pleural effusion. The cardiac silhouette size is within normal limits. The osseous structures are grossly intact. IMPRESSION: 1. No acute cardiopulmonary process.
--- NOTE | 2019-06-18 14:52 | ED ---
General Adult HPI - General Chief complaint: Upper Respiratory Infection Stated complaint: URI Time Seen by Provider: 06/18/19 13:50 Source: patient Mode of arrival: ambulatory Limitations: no limitations - History of Present Illness Initial comments: Patient is a 44-year-old female presenting to emergency Department with a cough. Patient reports the cough has been ongoing for approximately 2-3 weeks and is not resolved. Patient reports the cough occurs mostly in the morning and tapers off throughout the day. Patient reports going to her primary care who prescribed a Medrol Dosepak and discharge her. Patient reports clear bilateral rhinorrhea and a sore throat. Patient denies chest pain, chest tightness, otalgia, sinus pressure, nausea, vomiting, diarrhea or fever. Patient denies taking any other medication for symptomatically relief. Patient is not an asthmatic or smoke. - Related Data Home Medications Medication Instructions Recorded Confirmed Ibuprofen [Motrin Ib] 400 mg PO Q6H PRN 11/29/18 03/22/19 ALPRAZolam [Xanax] 0.25 mg PO BID PRN 03/22/19 03/22/19 Metoprolol Succinate (ER) [Toprol 12.5 mg PO BID 03/22/19 03/22/19 Xl] Pantoprazole Sodium [Protonix] 40 mg PO DAILY 03/22/19 03/22/19 Previous Rx's Medication Instructions Recorded Azithromycin [Zithromax Z-pack] 0 mg PO DIRECTED #1 pack 06/18/19 Allergies Allergy/AdvReac Type Severity Reaction Status Date / Time No Known Allergies Allergy Verified 06/18/19 13:31 Review of Systems ROS Statement: Those systems with pertinent positive or pertinent negative responses have been documented in the HPI. ROS Other: All systems not noted in ROS Statement are negative. Past Medical History Past Medical History: Hypertension Additional Past Medical History / Comment(s): pneumothorax-20 years ago., tachycardia History of Any Multi-Drug Resistant Organisms: None Reported Additional Past Surgical History / Comment(s): pneumothorax chest tube place Past Anesthesia/Blood Transfusion Reactions: No Reported Reaction, Unable to Obtain Past Psychological History: Anxiety, Depression Smoking Status: Never smoker Past Alcohol Use History: None Reported Past Drug Use History: None Reported - Past Family History Mother Family Medical History: Coronary Artery Disease (CAD), Hypertension Father Family Medical History: Myocardial Infarction ([place]) Additional Family Medical History / Comment(s): at age 53. General Exam - General Exam Comments Initial Comments: General: Well-developed well-nourished distress HEENT: Normocephalic/atraumatic, PERLL, pharynx erythema, swallowing well, EAC no erythema, no exudates, TM clear, no cervical lymph nodes Neck: Supple, nontender, trachea midline Chest/Lungs: Normal respirations, no signs of respiratory distress clear to auscultation bilaterally no wheezes, rales, rhonchi Cardiac: Regular rate and rhythm, normal S1-S2, no murmurs rubs or gallops Abdomen/GI: Soft nontender, bowel sounds equal or quadrant x4, no guarding, no rebound no CVA tenderness Musculoskeletal: Nontender, full range of motion, no edema, strength equal bilaterally Skin: Warmth, no rashes or lesions, no cyanosis or diaphoresis Neurologic: AAO x 3, CN 2-12 intact, Psychiatric: Mood and affect normal, judgment normal Limitations: no limitations Course Vital Signs 06/18/19 13:31 Temperature 98.3 F Pulse Rate 77 Respiratory 18 Rate Blood Pressure 136/94 O2 Sat by Pulse 95 Oximetry Medical Decision Making - Medical Decision Making Patient is a 44-year-old female presenting to emergency Department with a cough. Chest x-ray is unremarkable. Based on history, physical examination and imaging I suspect the patient to have bronchitis. Due to the extended period of for cough ongoing to treat the patient with azithromycin. Patient advised to continue taking the Medrol Dosepak that was prescribed by the primary care. Strict return parameters were thoroughly discussed with patient was understanding and agreeable. Case discussed with physician. Disposition Clinical Impression: Cough Disposition: HOME SELF-CARE Condition: Stable Instructions (If sedation given, give patient instructions): Acute Bronchitis (ED) Additional Instructions: Please take prescribed medication as directed. Continue taking Medrol Dosepak as prescribed by your primary care. Please return to emergency department if symptoms worsen. Prescriptions: Azithromycin [Zithromax Z-pack] 0 mg PO DIRECTED #1 pack Is patient prescribed a controlled substance at d/c from ED?: No Referrals: Raymon Roca MD [Primary Care Provider] - 1-2 days Time of Disposition: 14:45
== END 2019-06-18 15:15 | disposition home or self-care (01) ==
LOC: EC 13:17
DX: R05 Cough (principal); I10 Essential (primary) hypertension; F41.9 Anxiety disorder, unspecified; F32.9 Major depressive disorder, single episode, unspecified; Z79.899 Other long term (current) drug therapy
CPT/HCPCS: 71046; 99283

== ENCOUNTER → 2019-08-05 | Outpatient (CLI) | payer BC | END | disposition home or self-care (01) | LOC: CPPFTMAIN 14:08 | PROVIDERS: ATTEND Internal Medicine Critical Care Medicine | DX: R06.02 Shortness of breath (principal) | CPT/HCPCS: 94060; 94726; 94729 ==

== ENCOUNTER → 2019-08-13 | Outpatient (CLI) | payer BC ==
--- NOTE | 2019-08-13 14:08 | MM ---
Reason for exam: screening (asymptomatic). Last mammogram was performed 19 years and 2 months ago. History: Cyst aspiration of the left breast, 1999. Physical Findings: Nurse did not find any significant physical abnormalities on exam. MG 3D Screening Mammo W/Cad Bilateral CC and MLO view(s) were taken. XCCL view(s) were taken of the right breast. No prior studies available for comparison. The breast tissue is extremely dense which could obscure a lesion on mammography. There is no discrete abnormality. These results were verbally communicated with the patient and result sheet given to the patient on 08/13/19. ASSESSMENT: Negative, BI-RAD 1 RECOMMENDATION: Routine screening mammogram of both breasts in 1 year.
== END | disposition home or self-care (01) ==
LOC: RADMAMWWP 12:55
PROVIDERS: ATTEND Family Medicine
DX: Z12.31 Encounter for screening mammogram for malignant neoplasm of breast (principal)
CPT/HCPCS: 77063; 77067

== ENCOUNTER → 2019-09-11 | Outpatient (CLI) | payer BC ==
--- NOTE | 2019-09-12 14:27 | CT ---
EXAMINATION TYPE: CT chest w con DATE OF EXAM: 09/11/2019 COMPARISON: None HISTORY: cough CT DLP: 263.3 mGycm Automated exposure control for dose reduction was used. CONTRAST: CT scan of the chest is performed with IV Contrast, patient injected with 100 mL of Isovue 300. FINDINGS: There is mild interstitial density at the posterior lung bases. There is no evidence of a pulmonary m ass. Heart size is normal. There are no hilar masses. There is no mediastinal adenopathy. The thoraci c aorta is intact without sign of aneurysm or dissection. There is no filling defect in the pulmonary arteries. Bony thorax is intact. There is no compression fracture. The ribs appear intact. Upper abd ominal soft tissues are unremarkable. There is no bronchiectasis. IMPRESSION: Minimal subpleural interstitial density in the posterior lung tadeo consistent with sub segmental atelectasis and scarring. No suspicious pulmonary density. Normal heart.
== END | disposition home or self-care (01) ==
LOC: RADCTMAIN 11:25
PROVIDERS: ATTEND Nurse Practitioner Adult Health
DX: J98.4 Other disorders of lung (principal)
CPT/HCPCS: 71260; Q9967

== ENCOUNTER 2019-09-21 11:07 | Day surgery (SDC) | payer BC ==
[2019-09-17 09:51] VITALS: BMI 25.0
[~2019-09-21 11:07] MED LIST: ALBUTEROL NEB (CONC) 2.5 MG/0.5 ML INHALATION ONE; ATROPINE SULFATE 0.4 MG/ML 1 ML VIAL IM ONE; LACTATED RINGERS 1,000 ML IV SCH; LIDOCAINE 1% 20 ML VIAL (10MG/ML) FOR IV START INTRADERMA PRN; LIDOCAINE 2% (PF) 20 MG/ML 5 ML VIAL INHALATION ONE; LIDOCAINE VISCOUS 300 MG/15 ML CUP MUCOUS MEM ONE; SODIUM CHLORIDE 0.9% 1,000 ML IV SCH
[2019-09-21 11:37] VITALS: RESP 16; TEMP 97.8
[2019-09-21] MEDS ORDERED: MIDAZOLAM 2 MG/2 ML VIAL ONE (11:55)
[2019-09-21] MEDS ORDERED: KETAMINE 10 MG/ML 20 ML VIAL ONE (11:55)
[2019-09-21] MEDS ORDERED: GLYCOPYRROLATE 0.2 MG/ML 2 ML VIAL ONE (11:55)
[2019-09-21] MEDS ORDERED: fentaNYL (PF) 50 MCG/ML 2 ML AMP ONE (11:55)
[2019-09-21] MEDS ORDERED: PROPOFOL 10 MG/ML 20 ML VIAL IV ONE (11:55)
[2019-09-21] MEDS ORDERED: LIDOCAINE 1% INJ 10MG/ML (20 ML MDV) ONE (11:55)
[2019-09-21] MEDS ORDERED: LIDOCAINE 2% INJ 20 MG/ML INTRATRACH ONE (12:01)
[2019-09-21] MEDS ORDERED: LACTATED RINGERS 1,000 ML IV ONE (12:07)
--- NOTE | 2019-09-21 12:22 | PCN ---
PROCEDURE NOTE PROCEDURE: Bronchoscopy, airway examination, therapeutic lavage, BAL. PREOPERATIVE DIAGNOSIS: Chronic cough. POSTOPERATIVE DIAGNOSIS: Chronic cough. OPERATORS: Dr. Saunders and Dr. Isaacs. Ludmila Poon was the RESERVATIONS AND TICKETING AGENT and she provided unconscious sedation and general anesthesia. There was informed consent and universal timeout. The patient's procedure took place in room #2. After the patient was adequately sedated and being fully monitored, the bronchoscope was then inserted through the right nostril. It passed through the right nasopharynx into the oropharynx. The hypopharynx was identified. The hypopharyngeal structures including anterior commissure, true cords, false cords, arytenoids, piriform sinuses, right and left valleculae and epiglottis all appeared normal. After topicalization, bronchoscope was pushed through the glottic opening into the trachea. The trachea was normal in appearance. The tracheal sergio was sharp. The right and left mainstem were topicalized. The right upper lobe and its 3 segments, right middle lobe and its 2 segments, right lower lobe and its 5 segments, the left upper lobe proper and its 2 segments, the lingula and its 2 segments, and the left lower lobe and its 4 segments all appeared completely normal. There was no mass or tumor. There was no airway erythema or hyperemia. There were minimal thin secretions noted. No bleeding. Nothing to suggest any abnormality in the lower respiratory tract. The bronchoscope was then wedged in the right middle lobe. The BAL took place. There was no immediate complications. The fluid will be sent for analysis. The patient will be recovered. I will speak to the patient's . MMODL / IJN: [id number] /
[2019-09-21 12:26] VITALS: BP 126/85; PULSE 95
[2019-09-21 16:29] LABS: Appearance,BF Cloudy; Color,BF Colorless
[2019-09-21 18:33] LABS: Nucleated Cells, Body Fluid 20 /uL; RBC, Body Fluid 10 /uL
[2019-09-21 18:38] LABS: Mononuclear WBC,Body Fluid 44 %; Polynuclear WBC,Body Fluid 55 %; Total Cells Counted,Body Fluid 100
== END 2019-09-21 12:48 | disposition home or self-care (01) ==
LOC: ORWHC2ENDO 11:07
PROVIDERS: ATTEND Internal Medicine Critical Care Medicine
DX: R05 Cough (principal); I10 Essential (primary) hypertension; K21.9 Gastro-esophageal reflux disease without esophagitis; F32.9 Major depressive disorder, single episode, unspecified; F98.8 Other specified behavioral and emotional disorders with onset usually occurring in childhood and adolescence; F41.9 Anxiety disorder, unspecified; G43.909 Migraine, unspecified, not intractable, without status migrainosus; K44.9 Diaphragmatic hernia without obstruction or gangrene; Z79.899 Other long term (current) drug therapy
CPT/HCPCS: 94640; 81025; 87798 ×3; 87496; 87498; 87529; 88108; 88305; 89050; 87252; 87502; 87634; 87070; 87205; 87116; 87102; 87206; 31624; J2001 ×3; J2250; J0461; J3010; J2704

== ENCOUNTER → 2019-12-03 | Outpatient (CLI) | payer BC ==
--- NOTE | 2019-12-03 14:49 | US ---
EXAMINATION TYPE: US abdomen complete DATE OF EXAM: 12/03/2019 COMPARISON: NONE CLINICAL HISTORY: R10.84 ABDOMINAL PAIN. EXAM MEASUREMENTS: Liver Length: 12.4 cm Gallbladder Wall: 0.3 cm CBD: 0.5 cm Spleen: 11.0 cm Right Kidney: 11.0 x 3.8 x 4.9 cm Left Kidney: 11.2 x 5.5 x 4.3 cm Pancreas: wnl Liver: homogeneous, cyst measuring 1.2 x 1.4 x 1.0cm Gallbladder: wnl Evidence for sonographic Swenson's sign: no CBD: wnl Spleen: wnl Right Kidney: No hydronephrosis or masses seen Left Kidney: No hydronephrosis or masses seen Upper IVC: wnl Abd Aorta: wnl The visualized liver is slightly heterogeneous with thin-walled 1.2 cm cyst noted right hepatic lobe. The intrahepatic portion of the IVC and visualized abdominal aorta and bifurcation are within justin l limits. There is no evidence of cholelithiasis. Common bile duct is unremarkable. The visualized portions of the pancreas are homogenous. The spleen is unremarkable. Kidneys are symmetric and santos e of hydronephrosis. No renal lesions are seen on images saved. IMPRESSION: No acute findings identified to account for patient's symptoms of unspecified abdominal p ain.
== END | disposition home or self-care (01) ==
LOC: RADUSWWP 10:10
PROVIDERS: ATTEND Family Medicine
DX: R10.84 Generalized abdominal pain (principal)
CPT/HCPCS: 76700

== ENCOUNTER → 2019-12-07 | Outpatient (CLI) | payer BC ==
--- NOTE | 2019-12-08 08:26 | XR ---
EXAMINATION TYPE: XR lumbar spine 2 or 3V DATE OF EXAM: 12/07/2019 COMPARISON: 11/12/2016 HISTORY: Low back pain TECHNIQUE: Three-view lumbar spine FINDINGS: Disc space narrowing is present L5-S1. Remaining disc heights are preserved. Vertebral body heights are preserved. There 5 lumbar type bodies. Pedicles are intact. IMPRESSION: 1. Degenerative disc changes L5-S1.
== END | disposition home or self-care (01) ==
LOC: RADXRMAIN 15:41
PROVIDERS: ATTEND Family Medicine
DX: M47.817 Spondylosis without myelopathy or radiculopathy, lumbosacral region (principal)
CPT/HCPCS: 72100

== ENCOUNTER 2019-12-09 02:05 | Emergency (ER) | payer BC ==
[2019-12-09 02:16] VITALS: TEMP 98.2
[2019-12-09] MEDS ORDERED: SODIUM CHLORIDE 0.9% 500 ML 500 ML IV STA (02:44)
--- NOTE | 2019-12-09 03:04 | XR ---
EXAMINATION TYPE: XR chest 2V DATE OF EXAM: 12/09/2019 COMPARISON: 06/18/2019 HISTORY: Chest pain TECHNIQUE: FINDINGS: Heart and mediastinum are normal. Lungs are clear. Diaphragm is normal. Bony thorax appears normal. IMPRESSION: Normal chest. No change.
[2019-12-09 03:22] LABS: Basophils % (A) 0 %; Eosinophils # (A) 0.1 k/uL (0-0.7); Eosinophils % (A) 1 %; HCT 42.2 % (34.0-46.0); HGB 14.4 gm/dL (11.4-16.0); Lymphocytes # (A) 0.8 k/uL (1.0-4.8); Lymphocytes % (A) 8 %; MCH 31.3 pg (25.0-35.0); MCHC 34.3 g/dL (31.0-37.0); MCV 91.5 fL (80.0-100.0); Mean Platelet Volume 8.3; Monocytes # (A) 0.4 k/uL (0-1.0); Monocytes % (A) 3 %; Neutrophils # (A) 9.4 k/uL (1.3-7.7); Neutrophils % (A) 88 %; Platelet Count 263 k/uL (150-450); RBC 4.61 m/uL (3.80-5.40); RDW 13.1 % (11.5-15.5); WBC 10.7 k/uL (3.8-10.6)
[2019-12-09 03:34] LABS: ALT 15 U/L (4-34); AST 19 U/L (14-36); African American GFR (CKD) >90 (>60 ml/min/1.73 sqM); Albumin 4.4 g/dL (3.5-5.0); Alkaline Phosphatase 90 U/L (38-126); Anion Gap 9 mmol/L; Blood Urea Nitrogen 17 mg/dL (7-17); Calcium 10.9 mg/dL (8.4-10.2); Carbon Dioxide 22 mmol/L (22-30); Chloride 109 mmol/L (98-107); Glucose 125 mg/dL (74-99); Non-African American GFR(CKD) >90 (>60 ml/min/1.73 sqM); Potassium 4.3 mmol/L (3.5-5.1); Sodium 140 mmol/L (137-145); Total Bilirubin 0.6 mg/dL (0.2-1.3); Total Protein 7.5 g/dL (6.3-8.2)
[2019-12-09 03:35] LABS: D-Dimer <0.17 mg/L FEU (<0.60); INR 1.1 (<1.2); Partial Thromboplastin Time 25.2 sec (22.0-30.0); Prothrombin Time 10.8 sec (9.0-12.0)
--- NOTE | 2019-12-09 03:53 | ED ---
General Adult HPI - General Chief complaint: Arrhythmia/Palpitations Stated complaint: High heart rate and blood pressure Time Seen by Provider: 12/09/19 02:15 Source: patient, family, RN notes reviewed, old records reviewed Mode of arrival: ambulatory Limitations: no limitations - History of Present Illness Initial comments: 44-year-old female patient with past history of heart palpitations present to ED for chief complaint of waking up with sensation of heart racing. Patient has a long history of heart palpitations. She has had extensive cardiac investigations including echocardiogram, Holter monitor placement for one month which were reportedly benign. Patient does take metoprolol 12.5 mg once a day. Patient was that she was awoken early this morning with a sensation of heart racing. Denies any shortness of breath. Denies any significant pain. Patient reportedly checked her watch which monitors heart rate was up to 150. At time of eval uation Patient asymptomatic states that all symptoms have resolved. Denies any current complaints. Systemic: Pt denies fatigue, fever/chills, rash. Pt denies weakness, night sweats, weight loss. Neuro: Pt denies headache, visual disturbances, syncope or pre-syncope. HEENT: Pt denies ocular discharge or irritation, otalgia, rhinorrhea, pharyngitis or notable lymphadenopathy. Cardiopulmonary: Pt denies chest pain, SOB, heart palpitations, dyspnea on exertion. Abdominal/GI: Pt denies abdominal pain, n/v/d. : Pt denies dysuria, burning w/ urination, frequency/urgency. Denies new onset urinary or bowel incontinence. MSK: Pt denies myalgia, loss of strength or function in extremities. Neuro: Pt denies new onset weakness, paresthesias. - Related Data Home Medications Medication Instructions Recorded Confirmed ALPRAZolam [Xanax] 0.25 mg PO BID PRN 03/22/19 09/21/19 Metoprolol Succinate (ER) [Toprol 12.5 mg PO HS 03/22/19 09/21/19 Xl] Pantoprazole Sodium [Protonix] 40 mg PO DAILY 03/22/19 09/21/19 Cyanocobalamin [Vitamin B-12] 500 mcg PO DAILY 09/17/19 09/21/19 Multivitamins, Thera [Multivitamin 1 tab PO DAILY 10/25/19 10/29/19 (formulary)] Sucralfate [Carafate] 1 gm PO HS 09/17/19 09/21/19 Allergies Allergy/AdvReac Type Severity Reaction Status Date / Time No Known Allergies Allergy Verified 12/09/19 02:11 Review of Systems ROS Statement: Those systems with pertinent positive or pertinent negative responses have been documented in the HPI. ROS Other: All systems not noted in ROS Statement are negative. Past Medical History Past Medical History: GERD/Reflux, Hypertension Additional Past Medical History / Comment(s): pneumothorax-20 years ago., migraines, palpitations, tachycardia, dry cough since May 2019 and "lung congestion when laying down", hiatal hernia, History of Any Multi-Drug Resistant Organisms: None Reported Additional Past Surgical History / Comment(s): pneumothorax chest tube, Past Anesthesia/Blood Transfusion Reactions: Family History of Problems w/ Anesthesia, Motion Sickness Additional Past Anesthesia/Blood Transfusion Reaction / Comment(s): mom is hard to wake up Past Psychological History: Anxiety, Depression Smoking Status: Never smoker Past Alcohol Use History: None Reported Past Drug Use History: None Reported - Past Family History Mother Family Medical History: No Reported History Father Family Medical History: Myocardial Infarction ([place]) Additional Family Medical History / Comment(s): at age 53. General Exam - General Exam Comments Initial Comments: Constitutional: NAD, AOX3, Pt has pleasant affect. HEENT: NC/AT, trachea midline, neck supple, no lymphadenopathy. Posterior pharynx non erythematous, without exudates. External ears appear normal, without discharge. Mucous membranes moist. Eyes PERRLA, EOM intact. There is no scleral icterus. No pallor noted. Cardiopulmonary: RRR, no murmurs, rubs or gallops, no JVD noted. Lungs CTAB in anterior and posterior tadeo. No peripheral edema. Abdominal exam: Abdomen soft and non-distended. Abdomen non-tender to palpation in all 4 quadrants. Bowel sounds active in LLQ. No hepatosplenomegaly. No ecchymosis Neuro: CN II-XII grossly intact. No nuchal rigidity. No raccon eyes, no moscoso sign, no hemotympanum. No cervical spinal tenderness. MSK: No posterior calf tenderness bilaterally, homans sign negative bilaterally. Posterior tibialis and radial pulse +2 bilaterally. Sensation intact in upper and lower extremities. Full active ROM in upper and lower extremities, 5/5 stregnth. Limitations: no limitations Course Vital Signs 12/09/19 02:07 Temperature 98.2 F Pulse Rate 97 Respiratory 20 Rate Blood Pressure 161/97 O2 Sat by Pulse 99 Oximetry Medical Decision Making - Medical Decision Making 44-year-old female patient presents to emergency complaining of heart palpitations. At time of evaluation patient asymptomatic. Patient's vital signs are stable, afebrile. EKG is nonischemic. Chest x-ray didn't display acute process. Laboratory investigations revealed monocytosis of 10.7. Otherwise are negative. D-dimer is negative. Troponin is negative. Very mild hypercalcemia which appears to be baseline for patient. An repeat evaluation patient is to be asymptomatic. Patient be discharged, will follow up with primary care provider and legal summer intern tomorrow. Will return to ER if condition worsens. Case discussed with Dr. Andres. - Lab Data Result diagrams: 12/09/19 03:13 12/09/19 03:13 Lab Results 12/09/19 12/09/19 12/09/19 Range/Units 03:13 03:13 03:13 WBC 10.7 H (3.8-10.6) k/uL RBC 4.61 (3.80-5.40) m/uL Hgb 14.4 (11.4-16.0) gm/dL Hct 42.2 (34.0-46.0) % MCV 91.5 (80.0-100.0) fL MCH 31.3 (25.0-35.0) pg MCHC 34.3 (31.0-37.0) g/dL RDW 13.1 (11.5-15.5) % Plt Count 263 (150-450) k/uL Neutrophils % 88 % Lymphocytes % 8 % Monocytes % 3 % Eosinophils % 1 % Basophils % 0 % Neutrophils # 9.4 H (1.3-7.7) k/uL Lymphocytes # 0.8 L (1.0-4.8) k/uL Monocytes # 0.4 (0-1.0) k/uL Eosinophils # 0.1 (0-0.7) k/uL Basophils # 0.0 (0-0.2) k/uL PT 10.8 (9.0-12.0) sec INR 1.1 (<1.2) APTT 25.2 (22.0-30.0) sec D-Dimer <0.17 (<0.60) mg/L FEU Sodium 140 (137-145) mmol/L Potassium 4.3 (3.5-5.1) mmol/L Chloride 109 H (98-107) mmol/L Carbon Dioxide 22 (22-30) mmol/L Anion Gap 9 mmol/L BUN 17 (7-17) mg/dL Creatinine 0.58 (0.52-1.04) mg/dL Est GFR (CKD-EPI)AfAm >90 (>60 ml/min/1.73 sqM) Est GFR (CKD-EPI)NonAf >90 (>60 ml/min/1.73 sqM) Glucose 125 H (74-99) mg/dL Calcium 10.9 H (8.4-10.2) mg/dL Magnesium 2.0 (1.6-2.3) mg/dL Total Bilirubin 0.6 (0.2-1.3) mg/dL AST 19 (14-36) U/L ALT 15 (4-34) U/L Alkaline Phosphatase 90 (38-126) U/L Troponin I (0.000-0.034) ng/mL Total Protein 7.5 (6.3-8.2) g/dL Albumin 4.4 (3.5-5.0) g/dL 12/09/19 Range/Units 03:13 WBC (3.8-10.6) k/uL RBC (3.80-5.40) m/uL Hgb (11.4-16.0) gm/dL Hct (34.0-46.0) % MCV (80.0-100.0) fL MCH (25.0-35.0) pg MCHC (31.0-37.0) g/dL RDW (11.5-15.5) % Plt Count (150-450) k/uL Neutrophils % % Lymphocytes % % Monocytes % % Eosinophils % % Basophils % % Neutrophils # (1.3-7.7) k/uL Lymphocytes # (1.0-4.8) k/uL Monocytes # (0-1.0) k/uL Eosinophils # (0-0.7) k/uL Basophils # (0-0.2) k/uL PT (9.0-12.0) sec INR (<1.2) APTT (22.0-30.0) sec D-Dimer (<0.60) mg/L FEU Sodium (137-145) mmol/L Potassium (3.5-5.1) mmol/L Chloride (98-107) mmol/L Carbon Dioxide (22-30) mmol/L Anion Gap mmol/L BUN (7-17) mg/dL Creatinine (0.52-1.04) mg/dL Est GFR (CKD-EPI)AfAm (>60 ml/min/1.73 sqM) Est GFR (CKD-EPI)NonAf (>60 ml/min/1.73 sqM) Glucose (74-99) mg/dL Calcium (8.4-10.2) mg/dL Magnesium (1.6-2.3) mg/dL Total Bilirubin (0.2-1.3) mg/dL AST (14-36) U/L ALT (4-34) U/L Alkaline Phosphatase (38-126) U/L Troponin I <0.012 (0.000-0.034) ng/mL Total Protein (6.3-8.2) g/dL Albumin (3.5-5.0) g/dL - EKG Data -: EKG Interpreted by Me (and Dr. Andres) EKG Comments: Ventricular rate 82,. To 140, QRS 78, QT/QTC 388/453. Normal sinus rhythm, normal EKG, no concern for acute ischemia. Disposition Clinical Impression: Heart palpitations Disposition: HOME SELF-CARE Condition: Stable Instructions (If sedation given, give patient instructions): Heart Palpitations (ED) Additional Instructions: Follow-up with primary care provider tomorrow. Follow-up with legal summer intern tomorrow. Continue to monitor heart rate at home. Return immediate to ER if condition worsens in any way. Have Chemistries rechecked by primary care provider as well as thyroid studies. Is patient prescribed a controlled substance at d/c from ED?: No Referrals: Raymon Roca MD [Primary Care Provider] - 1-2 days
[2019-12-09 04:18] VITALS: BP 145/89; PULSE 64; RESP 18
== END 2019-12-09 04:01 | disposition home or self-care (01) ==
LOC: EC 02:05
DX: R00.2 Palpitations (principal); D72.821 Monocytosis (symptomatic); E83.52 Hypercalcemia; K21.9 Gastro-esophageal reflux disease without esophagitis; I10 Essential (primary) hypertension; Z79.899 Other long term (current) drug therapy; Z82.49 Family history of ischemic heart disease and other diseases of the circulatory system
CPT/HCPCS: 36415; 71046; 80053; 83735; 84484; 85025; 85379; 85610; 85730; 93005; 96360; 99285

== ENCOUNTER → 2019-12-11 | Outpatient (CLI) | payer BC | END | disposition home or self-care (01) | LOC: LABWHC1 11:26 | PROVIDERS: ATTEND Family Medicine | DX: I10 Essential (primary) hypertension (principal); R00.2 Palpitations | CPT/HCPCS: 36415; 82088; 83970; 84244 ==

== ENCOUNTER → 2019-12-17 | Outpatient (CLI) | payer BC ==
--- NOTE | 2019-12-17 12:58 | MR ---
EXAMINATION TYPE: MR lumbar spine wo con DATE OF EXAM: 12/17/2019 COMPARISON: Lumbar spine x-ray December 07, 2019 HISTORY: Low back pain per order. Pain down right leg for 15 years per patient. TECHNIQUE: Multiplanar, multisequence imaging of the lumbar spine is performed without IV contrast. FINDINGS: Sagittal images of the lumbar spine show vertebral body heights and alignment to appear sat isfactory. There is disc desiccation with moderate to severe disc space narrowing L5-S1 level, there is heterogeneous Modic type I endplate changes anteriorly. Remainder disks show normal height and hyd ration. The conus medullaris is normal in position and signal ending mid L1 level.. There is 9 mm Ta rlov cyst superior S2 level sagittal image 7. Axial images show the T12-L1, L1-L2, L2-L3, L3-L4, and L4-L5 levels also appear within normal limits. Axial images at L5-S1 level shows large right paracentral disc protrusion measuring 6 to 7 mm AP diam eter by 15 to 16 mm transversely axial image 3, this effaces the anterior spinal canal but there is s ome increased epidural fat noted beginning L5 level. Bilateral neural foramina are patent. No definit vinicius nerve root effacement identified. No suspicious incidental retroperitoneal findings. Paraspinal muscle bulk preserved. IMPRESSION: Degenerative changes lumbosacral junction with prominent disc herniation but no definitiv e nerve effacement to account for patient's radiculopathy type symptoms.
== END | disposition home or self-care (01) ==
LOC: RADMRIMAIN 12:16
PROVIDERS: ATTEND Family Medicine
DX: M51.17 Intervertebral disc disorders with radiculopathy, lumbosacral region (principal); M47.27 Other spondylosis with radiculopathy, lumbosacral region
CPT/HCPCS: 72148

== ENCOUNTER → 2020-07-17 | Outpatient (CLI) | payer BC ==
--- NOTE | 2020-07-18 07:15 | NM ---
EXAMINATION TYPE: NM hepatobiliary w EF DATE OF EXAM: 07/17/2020 COMPARISON: NONE HISTORY: R10.11 Right upper quadrant pain TECHNIQUE: After the intravenous administration of 4.49 mCi Tc 99m Mebrofenin hepatobiliary scintigra phy is performed. Immediate images post injection. FINDINGS: There is satisfactory initial accumulation of tracer by the liver. The gallbladder is visualized wit hin 10 minutes. The small bowel activity is noted within 26 minutes. At one hour 8 ounces of oral e nsure plus is given to mimic CCK and gallbladder ejection fraction is calculated at 75 %, in the norm al range. Therefore there is no scintigraphic evidence of cystic or common bile duct obstruction to suggest acute cholecystitis or gallbladder dyskinesia. IMPRESSION: Exam is within normal limits.
== END | disposition home or self-care (01) ==
LOC: RADNMMAIN 15:16
PROVIDERS: ATTEND Family Medicine
DX: R10.11 Right upper quadrant pain (principal)
CPT/HCPCS: 78226; A9537

== ENCOUNTER → 2021-11-20 | Outpatient (CLI) | payer BC ==
--- NOTE | 2021-11-20 13:42 | XR ---
EXAMINATION TYPE: XR foot complete RT DATE OF EXAM: 11/20/2021 CLINICAL HISTORY: pain TECHNIQUE: Frontal, lateral and oblique images of the right foot are obtained. COMPARISON: None. FINDINGS: There is no acute fracture/dislocation evident. The joint spaces appear within normal vogt its. The overlying soft tissue appears unremarkable. IMPRESSION: There is no acute fracture or dislocation. ICD 10 NO FRACTURE, INITIAL EVALUATION
== END | disposition home or self-care (01) ==
LOC: RADXRMAIN 13:25
PROVIDERS: ATTEND Family Medicine
DX: M79.671 Pain in right foot (principal)

== ENCOUNTER → 2022-03-11 | Outpatient (CLI) | payer BC ==
--- NOTE | 2022-03-13 10:40 | MM ---
Reason for exam: screening (asymptomatic). Last mammogram was performed 2 years and 7 months ago. History: Cyst aspiration of the left breast, 1999. Physical Findings: A clinical breast exam by your physician is recommended on an annual basis and results should be correlated with mammographic findings. MG Screening Mammo w CAD Bilateral CC and MLO view(s) were taken. Prior study comparison: August 13, 2019, bilateral MG 3d screening mammo w/cad. June 16, 2000, bilateral diagnostic mammogram. The breast tissue is extremely dense which could obscure a lesion on mammography. No significant changes when compared with prior studies. ASSESSMENT: Benign, BI-RAD 2 RECOMMENDATION: Routine screening mammogram of both breasts in 1 year.
== END | disposition home or self-care (01) ==
LOC: RADMAMWWP 16:51
PROVIDERS: ATTEND Family Medicine
DX: Z12.31 Encounter for screening mammogram for malignant neoplasm of breast (principal)
CPT/HCPCS: 77067

== ENCOUNTER → 2022-08-20 | Outpatient (CLI) | payer BC ==
--- NOTE | 2022-08-20 22:54 | XR ---
EXAMINATION TYPE: XR chest 2V DATE OF EXAM: 08/20/2022 COMPARISON: Chest x-ray December 09, 2019 HISTORY: Cough TECHNIQUE: Frontal and lateral views of the chest are obtained. FINDINGS: There is no suspicious new focal air space opacity, pleural effusion, or pneumothorax seen . The cardiac silhouette size is stable and within normal limits. The osseous structures are intac t. IMPRESSION: No acute pulmonary infiltrate.
== END | disposition home or self-care (01) ==
LOC: RADXRMAIN 16:24
PROVIDERS: ATTEND Family Medicine
DX: R05.9 Cough, unspecified (principal)
CPT/HCPCS: 71046

== ENCOUNTER 2022-11-26 17:06 | Observation (INO) | payer BC ==
[2022-11-26 17:13] VITALS: RESP 18; TEMP 98
[2022-11-26] MEDS ORDERED: ASPIRIN 81 MG PO STA (17:14)
--- NOTE | 2022-11-26 17:17 | ED ---
General Adult HPI <Mis Hankins - Last Filed: 11/26/22 17:12> - General Source: RN notes reviewed <Rito Guerrero - Last Filed: 11/26/22 21:55> - General Chief complaint: Chest Pain Stated complaint: chest pain - History of Present Illness Initial comments: 47-year-old female presenting to the emergency room with complaints of sudden onset of chest pain which she reports she believes is starting in her back and radiating to sternal. This pain is worse with inspiration. She reports that the pain is radiating to her left arm. She states that she was driving when the pain started without any aggregating factors. She denies any shortness of breath, orthopnea, abdominal pain, nausea, vomiting, headache, dizziness, fevers or chills. She does note that she has been previously worked up for palpitations but denies any at this time. She does have family history significant for cardiovascular disease of her father's first SD at the age of 42 and at the age of 50. She is being treated for hypertension which is not a smoker. She has no other significant past medical history. (Mis Hankins) Patient is a pleasant 47-year-old female presenting to emergency Department with chest discomfort. Patient states discomfort is left chest and left back. Patient states discomfort does increase with deep breaths and when she was hugged by her son. No history of similar symptoms previously. Patient does have history of hypertension. (Rito Guerrero) - Related Data Home Medications Medication Instructions Recorded Confirmed ALPRAZolam [Xanax] 0.25 mg PO BID PRN 03/22/19 09/21/19 Metoprolol Succinate (ER) [Toprol 12.5 mg PO HS 03/22/19 09/21/19 Xl] Pantoprazole Sodium [Protonix] 40 mg PO DAILY 03/22/19 09/21/19 Cyanocobalamin [Vitamin B-12] 500 mcg PO DAILY 09/17/19 09/21/19 Multivitamins, Thera [Multivitamin 1 tab PO DAILY 09/17/19 09/21/19 (formulary)] Sucralfate [Carafate] 1 gm PO HS 09/17/19 09/21/19 Allergies Allergy/AdvReac Type Severity Reaction Status Date / Time No Known Allergies Allergy Verified 11/26/22 17:13 Review of Systems ROS Other: All systems not noted in ROS Statement are negative. <Mis Hankins - Last Filed: 11/26/22 17:12> ROS Other: All systems not noted in ROS Statement are negative. Constitutional: Denies: fever ENT: Denies: ear pain Respiratory: Denies: cough, dyspnea Cardiovascular: Reports: as per HPI, chest pain Endocrine: Denies: fatigue <Rito Guerrero - Last Filed: 11/26/22 21:55> ROS Statement: Those systems with pertinent positive or pertinent negative responses have been documented in the HPI. Past Medical History Past Medical History: GERD/Reflux, Hypertension Additional Past Medical History / Comment(s): pneumothorax-20 years ago., migraines, palpitations, tachycardia, dry cough since May 2019 and "lung congestion when laying down", hiatal hernia, History of Any Multi-Drug Resistant Organisms: None Reported Additional Past Surgical History / Comment(s): pneumothorax chest tube, Past Anesthesia/Blood Transfusion Reactions: Family History of Problems w/ Anesthesia, Motion Sickness Additional Past Anesthesia/Blood Transfusion Reaction / Comment(s): mom is hard to wake up Past Psychological History: Anxiety, Depression Past Alcohol Use History: None Reported Past Drug Use History: None Reported - Past Family History Mother Family Medical History: No Reported History Father Family Medical History: Myocardial Infarction (SD) Additional Family Medical History / Comment(s): at age 53. <Mis Hankins - Last Filed: 11/26/22 17:12> General Exam Limitations: no limitations General appearance: alert, in no apparent distress Head exam: Present: normocephalic Eye exam: Present: normal appearance Neck exam: Present: normal inspection Respiratory exam: Present: normal lung sounds bilaterally. Absent: chest wall tenderness Cardiovascular Exam: Present: regular rate, normal rhythm Expanded Peripheral pulses: 2+: Radial (R), Radial (L), Posterior Tibialis (R), Posterior Tibialis (L) GI/Abdominal exam: Present: soft. Absent: tenderness Extremities exam: Present: normal inspection. Absent: pedal edema, calf tenderness Back exam: Present: normal inspection. 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 Patient and family updated. Case discussed with practitioner Lexie, covering for Dr. Corcoran, who will admit covering Dr. Roca. Was pt. sent in by a medical professional or institution? @ -n Did you speak to anyone other than the patient for history? @ -Family is present and confirms history Did you review nursing and triage notes? @ -Yes and agree Were old charts reviewed? @ -n Differential Diagnosis? @ -Differential Chest Pain: Stable Angina, Unstable Angina, STEMI, NSTEMI Aortic Dissection, Pneumothorax, Musculoskeletal, Esophageal Spasm GERD, Cholecystitis, Pancreatitis, Zoster, this is not meant to be an all-inclusive list. EKG interpreted by me (3pts min.)? @ -y X-rays interpreted by me (1pt min.)? @ -y CT interpreted by me (1pt min.)? @ -[none] U/S interpreted by me (1pt. min.)? @ -[none] What testing was considered but not performed? (CT, X-rays, U/S, labs)? Why? @ n What meds were considered but not given? Why? @ -n Did you discuss the management of the patient with other professionals? @ -Case discussed with practitioner Lexie Did you reconcile home meds? @ -Will be reviewed and ordered if done Was smoking cessation discussed for >3mins.? @ -[none] Was critical care preformed (if so, how long)? @ -[none] Were there social determinants of health that impacted care today? How? (Homelessness, low income, unemployed, alcoholism, drug addiction, transportation, low edu. Level, literacy, decrease access to med. care, care home, rehab)? @ -n Was there de-escalation of care discussed even if they declined? (Discuss DNR or withdrawal of care, Hospice)? @ -n What co-morbidities impacted this encounter? (DM, HTN, Smoking, COPD, CAD, Cancer, CVA, Hep., AIDS, mental health diagnosis, sleep apnea, morbid obesity)? @ -n Was patient admitted / discharged? @ -Admitted Undiagnosed new problem with uncertain prognosis? @ -[none] Drug Therapy requiring intensive monitoring for toxicity (Heparin, Nitro, Insulin, Cardizem)? @ -[none] Were any procedures done? @ -[none] Diagnosis/symptom? @ -Chest pain Acute, or Chronic, or Acute on Chronic? @ -Acute Uncomplicated (without systemic symptoms) or Complicated (systemic symptoms)? @ -Uncomplicated Side effects of treatment? @ -[none] Exacerbation, Progression, or Severe Exacerbation] @ -[no] Poses a threat to life or bodily function? @ -Potential threat if discomfort turns out to be cardiac (Rito Guerrero) - Lab Data Lab Results 11/26/22 11/26/22 11/26/22 Range/Units 17:26 17:26 17:26 WBC 6.9 (3.8-10.6) k/uL RBC 4.53 (3.80-5.40) m/uL Hgb 14.4 (11.4-16.0) gm/dL Hct 41.1 (34.0-46.0) % MCV 90.8 (80.0-100.0) fL MCH 31.9 (25.0-35.0) pg MCHC 35.1 (31.0-37.0) g/dL RDW 13.3 (11.5-15.5) % Plt Count 223 (150-450) k/uL MPV 8.3 Neutrophils % 74 % Lymphocytes % 17 % Monocytes % 5 % Eosinophils % 2 % Basophils % 1 % Neutrophils # 5.1 (1.3-7.7) k/uL Lymphocytes # 1.2 (1.0-4.8) k/uL Monocytes # 0.4 (0-1.0) k/uL Eosinophils # 0.2 (0-0.7) k/uL Basophils # 0.1 (0-0.2) k/uL PT 10.8 (9.0-12.0) sec INR 1.0 (<1.2) APTT 24.5 (22.0-30.0) sec D-Dimer 0.44 (<0.60) mg/L FEU Sodium 140 (137-145) mmol/L Potassium 3.8 (3.5-5.1) mmol/L Chloride 110 H (98-107) mmol/L Carbon Dioxide 23 (22-30) mmol/L Anion Gap 7 mmol/L BUN 16 (7-17) mg/dL Creatinine 0.77 (0.52-1.04) mg/dL Est GFR (CKD-EPI)AfAm >90 (>60 ml/min/1.73 sqM) Est GFR (CKD-EPI)NonAf >90 (>60 ml/min/1.73 sqM) Glucose 96 (74-99) mg/dL Calcium 9.3 (8.4-10.2) mg/dL Magnesium 1.9 (1.6-2.3) mg/dL Total Bilirubin 0.2 (0.2-1.3) mg/dL AST 20 (14-36) U/L ALT 22 (4-34) U/L Alkaline Phosphatase 57 (38-126) U/L Troponin I (0.000-0.034) ng/mL Total Protein 7.1 (6.3-8.2) g/dL Albumin 4.3 (3.5-5.0) g/dL Influenza Type A (PCR) (Not Detectd) Influenza Type B (PCR) (Not Detectd) RSV (PCR) (Not Detectd) SARS-CoV-2 (PCR) (Not Detectd) 11/26/22 11/26/22 Range/Units 17:26 17:26 WBC (3.8-10.6) k/uL RBC (3.80-5.40) m/uL Hgb (11.4-16.0) gm/dL Hct (34.0-46.0) % MCV (80.0-100.0) fL MCH (25.0-35.0) pg MCHC (31.0-37.0) g/dL RDW (11.5-15.5) % Plt Count (150-450) k/uL MPV Neutrophils % % Lymphocytes % % Monocytes % % Eosinophils % % Basophils % % Neutrophils # (1.3-7.7) k/uL Lymphocytes # (1.0-4.8) k/uL Monocytes # (0-1.0) k/uL Eosinophils # (0-0.7) k/uL Basophils # (0-0.2) k/uL PT (9.0-12.0) sec INR (<1.2) APTT (22.0-30.0) sec D-Dimer (<0.60) mg/L FEU Sodium (137-145) mmol/L Potassium (3.5-5.1) mmol/L Chloride (98-107) mmol/L Carbon Dioxide (22-30) mmol/L Anion Gap mmol/L BUN (7-17) mg/dL Creatinine (0.52-1.04) mg/dL Est GFR (CKD-EPI)AfAm (>60 ml/min/1.73 sqM) Est GFR (CKD-EPI)NonAf (>60 ml/min/1.73 sqM) Glucose (74-99) mg/dL Calcium (8.4-10.2) mg/dL Magnesium (1.6-2.3) mg/dL Total Bilirubin (0.2-1.3) mg/dL AST (14-36) U/L ALT (4-34) U/L Alkaline Phosphatase (38-126) U/L Troponin I <0.012 (0.000-0.034) ng/mL Total Protein (6.3-8.2) g/dL Albumin (3.5-5.0) g/dL Influenza Type A (PCR) Not Detected (Not Detectd) Influenza Type B (PCR) Not Detected (Not Detectd) RSV (PCR) Not Detected (Not Detectd) SARS-CoV-2 (PCR) Not Detected (Not Detectd) - Radiology Data Interpreted by me: Chest x-ray reveals no acute process (Rito Guerrero) Disposition <Mis Hankins - Last Filed: 11/26/22 17:12> Is patient prescribed a controlled substance at d/c from ED?: No Time of Disposition: 21:55 <Rito Guerrero - Last Filed: 11/26/22 21:55> Clinical Impression: Chest pain Disposition: ADMITTED IP TO THIS HOSP Referrals: Raymon Roca MD [Primary Care Provider] - 1-2 days
[2022-11-26 17:34] LABS: Basophils # (A) 0.1 k/uL (0-0.2); Basophils % (A) 1 %; Eosinophils # (A) 0.2 k/uL (0-0.7); Eosinophils % (A) 2 %; HCT 41.1 % (34.0-46.0); HGB 14.4 gm/dL (11.4-16.0); Lymphocytes # (A) 1.2 k/uL (1.0-4.8); Lymphocytes % (A) 17 %; MCH 31.9 pg (25.0-35.0); MCHC 35.1 g/dL (31.0-37.0); MCV 90.8 fL (80.0-100.0); Mean Platelet Volume 8.3; Monocytes # (A) 0.4 k/uL (0-1.0); Monocytes % (A) 5 %; Neutrophils # (A) 5.1 k/uL (1.3-7.7); Neutrophils % (A) 74 %; Platelet Count 223 k/uL (150-450); RBC 4.53 m/uL (3.80-5.40); RDW 13.3 % (11.5-15.5); WBC 6.9 k/uL (3.8-10.6)
[2022-11-26 17:44] LABS: ALT 22 U/L (4-34); AST 20 U/L (14-36); African American GFR (CKD) >90 (>60 ml/min/1.73 sqM); Albumin 4.3 g/dL (3.5-5.0); Alkaline Phosphatase 57 U/L (38-126); Anion Gap 7 mmol/L; Blood Urea Nitrogen 16 mg/dL (7-17); Calcium 9.3 mg/dL (8.4-10.2); Carbon Dioxide 23 mmol/L (22-30); Chloride 110 mmol/L (98-107); Glucose 96 mg/dL (74-99); Magnesium 1.9 mg/dL (1.6-2.3); Non-African American GFR(CKD) >90 (>60 ml/min/1.73 sqM); Potassium 3.8 mmol/L (3.5-5.1); Sodium 140 mmol/L (137-145); Total Bilirubin 0.2 mg/dL (0.2-1.3); Total Protein 7.1 g/dL (6.3-8.2)
[2022-11-26 17:48] LABS: Partial Thromboplastin Time 24.5 sec (22.0-30.0); Prothrombin Time 10.8 sec (9.0-12.0)
--- NOTE | 2022-11-26 18:11 | XR ---
EXAMINATION TYPE: XR chest 2V DATE OF EXAM: 11/26/2022 COMPARISON: 08/20/2022 HISTORY: Chest pain TECHNIQUE: 2 views FINDINGS: Heart and mediastinum are normal. Lungs are clear. Diaphragm is normal. Bony thorax is inta ct IMPRESSION: Normal chest. No change.
[2022-11-26] MEDS ORDERED: MORPHINE SULFATE 4 MG/ML SYRINGE IVP STA ×2 (20:17→21:56)
[2022-11-26] MEDS ORDERED: MORPHINE SULFATE 4 MG/ML SYRINGE IV PRN (21:56)
[2022-11-26] MEDS ORDERED: NITROGLYCERIN SL TABS 0.4 MG TAB SUBLINGUAL PRN (21:56)
[2022-11-27 08:54] LABS: Chol/HDL Ratio 3.89 Ratio; LDL Cholesterol,Calculated 96.7 mg/dL (0.0-131.0)
[2022-11-27] MEDS ORDERED: ASPIRIN 81 MG PO SCH (09:00)
[2022-11-27] MEDS ORDERED: ASPIRIN 325 MG TAB PO SCH (09:00)
--- NOTE | 2022-11-27 10:53 | P.CRDCN ---
History of Present Illness History of present illness: HISTORY OF PRESENT ILLNESS: This is a 47-year-old female with a past medical history significant for hypertension and tachycardia with unknown etiology. Patient follows with a Dr. Blackmon. We have been asked to see the patient in consultation for chest pain. Patient examined at the bedside. Patient states she began having chest pain a few days ago. She states the pain was in the middle of her chest and also radiated into her back and between her shoulder blades. She states that she initially thought it was muscle skeletal however the pain began radiating down her left arm as well. She reports the pain is worse with deep inspiration. She did receive morphine overnight which she states helped her pain a little bit. The time of examination this morning, the patient is currently denying chest pain or pressure. She reports that she has a history of tachycardia and has worn event monitors in the past from her primary swimming coach or instructor. She reports there has been cause found for her tachycardia. She reports that she had a stress test performed a couple years ago which was normal to her knowledge. She reports a family history of coronary artery disease and states her dad had his first AL when he was in his 40s and when he was in his 50s. * EKG reveals sinus mechanism with no signs of acute ischemia * Chest xray normal chest. No change. * Laboratory data: WBC 6.9. Hemoglobin 14.4. Platelet count 223. D-dimer 0.44. Sodium 140. Potassium 3.8. BUN 16. Creatinine 0.77. Troponin negative 3 * Current home cardiac medications include metoprolol succinate 75 mg daily REVIEW OF SYSTEMS: At the time of my exam: CONSTITUTIONAL: Denies fever or chills. HEENT: Denies blurred vision, vision changes, or eye pain. Denies hemoptysis CARDIOVASCULAR: Denies chest pain. Denies orthopnea. Denies PND. Denies p alpitations RESPIRATORY: Denies shortness of breath. GASTROINTESTINAL: Denies abdominal pain. Denies nausea or vomiting. HEMATOLOGIC: Denies bleeding disorders. GENITOURINARY: Denies any blood in urine. SKIN: Denies pruitis. Denies rash. PHYSICAL EXAM: VITAL SIGNS: Reviewed. GENERAL: Well-developed in no acute distress. HEENT: Head is normocephalic. Pupils are equal, round. Sclerae anicteric. Mucous membranes of the mouth are moist. Neck supple. No JVD or thyromegaly LUNGS: Respirations even and unlabored. Lungs essentially clear to auscultation bilaterally. HEART: Regular rate and rhythm. S1 and S2 heard. ABDOMEN: Soft. Nondistended. Nontender. EXTREMITIES: Normal range of motion. No clubbing or cyanosis. Peripheral pulses intact. No lower extremity edema NEUROLOGIC: Awake and alert. Oriented x 3. ASSESSMENT: Chest pain, atypical, troponin negative 3 Hypertension History of sinus tachycardia with unknown etiology Family history of premature coronary artery disease PLAN: An acute coronary event has been ruled out Resume home cardiac medications Obtain 2-D echo to assess cardiac structure and function Dr. Marie spoke with the patient and recommended stress testing this morning. However the patient is currently refusing and is wishing to be discharged home. Patient states she has a follow-up appointment with her primary swimming coach or instructor this month. If 2-D echo does not reveal any significant abnormalities, the patient may be discharged home from a cardiac perspective. Nurse practitioner note has been reviewed by physician. Signing provider agrees with the documented findings, assessment, and plan of care. Past Medical History Past Medical History: GERD/Reflux, Hypertension Additional Past Medical History / Comment(s): pneumothorax-20 years ago., migraines, palpitations, tachycardia, dry cough since May 2019 and "lung congestion when laying down", hiatal hernia, History of Any Multi-Drug Resistant Organisms: None Reported Additional Past Surgical History / Comment(s): pneumothorax chest tube, Past Anesthesia/Blood Transfusion Reactions: Family History of Problems w/ Anesthesia, Motion Sickness Additional Past Anesthesia/Blood Transfusion Reaction / Comment(s): mom is hard to wake up Past Psychological History: Anxiety, Depression Past Alcohol Use History: None Reported Past Drug Use History: None Reported - Past Family History Mother Family Medical History: No Reported History Father Family Medical History: Myocardial Infarction ([place]) Additional Family Medical History / Comment(s): at age 53. Medications and Allergies Home Medications Medication Instructions Recorded Confirmed Type ALPRAZolam [Xanax] 0.25 mg PO TID PRN 03/22/19 11/26/22 History Pantoprazole Sodium [Protonix] 40 mg PO DAILY 03/22/19 11/26/22 History Metoprolol Succinate [Toprol XL] 75 mg PO W/SUPPER 11/26/22 11/26/22 History Allergies Allergy/AdvReac Type Severity Reaction Status Date / Time No Known Allergies Allergy Verified 11/26/22 22:36 Physical Exam Vitals: Vital Signs Temp Pulse Pulse Resp BP Pulse Ox 11/27/22 06:00 61 18 114/75 99 11/27/22 05:00 61 18 129/81 100 11/27/22 04:00 70 11/27/22 01:00 61 18 129/81 100 11/27/22 00:00 65 11/26/22 20:13 70 11/26/22 17:10 98.0 F 83 18 148/85 98 Intake and Output 11/26/22 11/27/22 11/27/22 22:59 06:59 14:59 Other: Weight 77.111 kg Results 11/26/22 17:26 11/26/22 17:26 Cardiac Enzymes 11/26/22 11/26/22 11/26/22 Range/Units 17:26 17:26 22:25 AST 20 (14-36) U/L Troponin I <0.012 <0.012 (0.000-0.034) ng/mL 11/27/22 Range/Units 02:45 AST (14-36) U/L Troponin I <0.012 (0.000-0.034) ng/mL Coagulation 11/26/22 Range/Units 17:26 PT 10.8 (9.0-12.0) sec APTT 24.5 (22.0-30.0) sec CBC 11/26/22 Range/Units 17:26 WBC 6.9 (3.8-10.6) k/uL RBC 4.53 (3.80-5.40) m/uL Hgb 14.4 (11.4-16.0) gm/dL Hct 41.1 (34.0-46.0) % Plt Count 223 (150-450) k/uL Comprehensive Metabolic Panel 11/26/22 Range/Units 17:26 Sodium 140 (137-145) mmol/L Potassium 3.8 (3.5-5.1) mmol/L Chloride 110 H (98-107) mmol/L Carbon Dioxide 23 (22-30) mmol/L BUN 16 (7-17) mg/dL Creatinine 0.77 (0.52-1.04) mg/dL Glucose 96 (74-99) mg/dL Calcium 9.3 (8.4-10.2) mg/dL AST 20 (14-36) U/L ALT 22 (4-34) U/L Alkaline Phosphatase 57 (38-126) U/L Total Protein 7.1 (6.3-8.2) g/dL Albumin 4.3 (3.5-5.0) g/dL Current Medications Generic Name Dose Route Start Last Admin Trade Name Freq PRN Reason Stop Dose Admin Aspirin 325 mg 11/27/22 09:00 Aspirin 325 Mg Tab PO DAILY FERNANDA Morphine Sulfate 4 mg 11/26/22 21:56 11/27/22 04:22 Morphine Sulfate 4 Mg/Ml Syringe IV 4 mg Q5M PRN Administration Chest Pain Nitroglycerin 0.4 mg 11/26/22 21:56 Nitroglycerin Sl Tabs 0.4 Mg Tab SUBLINGUAL Q5M PRN Chest Pain Intake and Output 11/26/22 11/27/22 11/27/22 22:59 06:59 14:59 Other: Weight 77.111 kg 11/26/22 17:26 11/26/22 17:26
--- NOTE | 2022-11-27 12:59 | CA ---
Transthoracic Echo Report Name: Mariel Araujo Age: 47 Gender: F : 1975 Exam Date: 11/27/2022 10:35 Exam Location: [facility] Ht (in): 66 Wt (lb): 170 Ordering Physician: Lynda Zuñiga Attending/Referring Phys: [id number], Yogesh Narrow Gauge Operator Ashleigh Kelly RDCS Procedure CPT: Indications: LV function, chest pain Cardiac Hx: Technical Quality: Fair Contrast 1: Total Dose (mL): Contrast 2: Total Dose (mL): MEASUREMENTS (Male / Female) Normal Values 2D ECHO LV Diastolic Diameter PLAX 3.9 cm 4.2 - 5.9 / 3.9 - 5.3 cm LV Systolic Diameter PLAX 2.3 cm IVS Diastolic Thickness 1.3 cm 0.6 - 1.0 / 0.6 - 0.9 cm LVPW Diastolic Thickness 1.2 cm 0.6 - 1.0 / 0.6 - 0.9 cm LV Relative Wall Thickness 0.6 RV Internal Dim ED PLAX 3.0 cm LA Volume 37.0 cm??? 18 - 58 / 22 - 52 cm??? M-MODE Aortic Root Diameter MM 3.3 cm LA Systolic Diameter MM 3.6 cm LA Ao Ratio MM 1.1 AV Cusp Separation MM 2.5 cm DOPPLER AV Peak Velocity 130.4 cm/s AV Peak Gradient 6.8 mmHg LVOT Peak Velocity 123.9 cm/s LVOT Peak Gradient 6.1 mmHg MV Area PHT 3.3 cm??? Mitral E Point Velocity 85.5 cm/s Mitral A Point Velocity 66.4 cm/s Mitral E to A Ratio 1.3 MV Deceleration Time 227.9 ms MV E' Velocity 9.7 cm/s Mitral E to MV E' Ratio 8.8 TR Peak Velocity 251.0 cm/s TR Peak Gradient 25.2 mmHg Right Ventricular Systolic Press 29.7 mmHg FINDINGS Left Ventricle Mildly increased septal wall thickness. Mildly increased posterior wall thickness. Normal left ventricular systolic function with no obvious regional wall motion abnormalities. Left ventricular ejection fraction is estimated at 55-60 %. Right Ventricle Normal right ventricular size and function. Right ventricular systolic pressure within normal limits. Right Atrium Normal right atrial size. Left Atrium Normal left atrial size. Mitral Valve Structurally normal mitral valve. No mitral stenosis, regurgitation or prolapse. Aortic Valve No aortic valve stenosis or regurgitation. Tricuspid Valve Structurally normal tricuspid valve. Mild tricuspid regurgitation. Pulmonic Valve Trace pulmonic regurgitation. Pericardium No pericardial effusion. Aorta Normal size aortic root and proximal ascending aorta. CONCLUSIONS Left ventricular ejection fraction 55-60% Mild increased left ventricular wall thickness No mitral regurgitation Mild tricuspid regurgitation RVSP 29 No pericardial effusion Previewed by: Dr. Samson Marie DO (Electronically Signed) Final Date: 27 November 2022 12:58
[2022-11-27 14:20] VITALS: BP 145/76; PULSE 64
[2022-11-27] MEDS ORDERED: METOPROLOL SUCCINATE (ER) 50 MG TAB.ER.24H PO SCH (17:30)
--- NOTE | 2022-11-29 08:09 | P.HPIM ---
History of Present Illness H&P Date: 11/27/22 Chief Complaint: Chest pain This is a history and physical on a 47-year-old white female well-known to my practice who has an underlying history of hypertension which is stable. Send onset of chest pain with classical signs of angina. The patient had cardiology consultation and was sent to the catheterization lab for treatment. The patient has no significant tobacco use. Family history otherwise noted. No voiding difficulties. Review of Systems All systems: negative Cardiovascular: Reports chest pain, Denies leg edema Past Medical History Past Medical History: GERD/Reflux, Hypertension Additional Past Medical History / Comment(s): pneumothorax-20 years ago., migraines, palpitations, tachycardia, dry cough since May 2019 and "lung congestion when laying down", hiatal hernia, History of Any Multi-Drug Resistant Organisms: None Reported Additional Past Surgical History / Comment(s): pneumothorax chest tube, Past Anesthesia/Blood Transfusion Reactions: Family History of Problems w/ Anesthesia, Motion Sickness Additional Past Anesthesia/Blood Transfusion Reaction / Comment(s): mom is hard to wake up Past Psychological History: Anxiety, Depression Past Alcohol Use History: None Reported Past Drug Use History: None Reported - Past Family History Mother Family Medical History: No Reported History Father Family Medical History: Myocardial Infarction ([place]) Additional Family Medical History / Comment(s): at age 53. Medications and Allergies Home Medications Medication Instructions Recorded Confirmed Type ALPRAZolam [Xanax] 0.25 mg PO TID PRN 03/22/19 11/26/22 History Pantoprazole Sodium [Protonix] 40 mg PO DAILY 03/22/19 11/26/22 History Metoprolol Succinate [Toprol XL] 75 mg PO W/SUPPER 11/26/22 11/26/22 History Allergies Allergy/AdvReac Type Severity Reaction Status Date / Time No Known Allergies Allergy Verified 11/26/22 22:36 Physical Exam - Constitutional General appearance: average body habitus - EENT Eyes: no abnormal pupil - Neck Neck: no lymphadenopathy - Respiratory Respiratory: bilateral: CTA - Cardiovascular Rhythm: regular Heart sounds: normal: S1, S2 Abnormal Heart Sounds: no S3 Gallop - Gastrointestinal General gastrointestinal: soft, no tenderness - Integumentary Integumentary: normal - Musculoskeletal Musculoskeletal: no generalized weakness - Psychiatric Psychiatric: A&O x's 3, intact judgment & insight Results CBC & Chem 7: 11/26/22 17:26 11/26/22 17:26 Assessment and Plan (1) Chest pain Status: Acute Code(s): R07.9 - CHEST PAIN, UNSPECIFIED SNOMED Code(s): 46588782 (2) History of attention deficit disorder Status: Acute Code(s): Z86.59 - PERSONAL HISTORY OF OTHER MENTAL AND BEHAVIORAL DISORDERS SNOMED Code(s): 953538118 (3) Hypertension Status: Acute Code(s): I10 - ESSENTIAL (PRIMARY) HYPERTENSION SNOMED Code(s): 41467826 Plan: The patient is currently at the cardiac catheterization lab. Rule out myocardial infarction. Continue home medication. We'll continue to follow. Prognosis is guarded
--- NOTE | 2022-11-29 08:10 | P.DS ---
Providers Date of admission: 11/26/22 21:56 Attending physician: Raymon Roca Consults: 11/26/22 21:56 Consult Physician Urgent Consulting Provider: Jorge Bloom Consult Reason/Comments: cp Do you want consulting provider notified?: Yes Primary care physician: Raymon Roca - Discharge Diagnosis(es) (1) Chest pain Status: Acute (2) History of attention deficit disorder Status: Acute (3) Hypertension Status: Acute Hospital Course: This is a discharge summary 47-year-old white female essentially admitted for anginal chest pain. The patient ended up having appropriate cardiac catheterization which is nominal. Echocardiogram and other workup was negative she is discharged in stable condition to follow-up with me in about 5 days. Patient Condition at Discharge: Stable Plan - Discharge Summary New Discharge Prescriptions: No Action ALPRAZolam [Xanax] 0.25 mg PO TID PRN PRN Reason: Anxiety Pantoprazole Sodium [Protonix] 40 mg PO DAILY Metoprolol Succinate [Toprol XL] 75 mg PO W/SUPPER Discharge Medication List ALPRAZolam [Xanax] 0.25 mg PO TID PRN 03/22/19 [History] Pantoprazole Sodium [Protonix] 40 mg PO DAILY 03/22/19 [History] Metoprolol Succinate [Toprol XL] 75 mg PO W/SUPPER 11/26/22 [History] Follow up Appointment(s)/Referral(s): Raymon Roca MD [Primary Care Provider] - 1-2 days Patient Instructions/Handouts: Chest Pain (ED) Discharge Disposition: HOME SELF-CARE
== END 2022-11-27 14:18 | disposition home or self-care (01) ==
LOC: EC 17:06 → 6NMEDSUR 21:56 → 2CATHESU 11-27 07:22
PROVIDERS: ADMIT Family Medicine; ATTEND Family Medicine
DX: R07.89 Other chest pain (principal); I10 Essential (primary) hypertension; K21.9 Gastro-esophageal reflux disease without esophagitis; F41.9 Anxiety disorder, unspecified; F32.A Depression, unspecified; I07.1 Rheumatic tricuspid insufficiency; I37.1 Nonrheumatic pulmonary valve insufficiency; Z82.49 Family history of ischemic heart disease and other diseases of the circulatory system; Z79.899 Other long term (current) drug therapy; Z20.822 Contact with and (suspected) exposure to COVID-19
CPT/HCPCS: 96376 ×2; 96374; 99285; 36415; 93005 ×2; 93306; 85379; 80061; 80053; 83735; 84484 ×2; 85025; 85610; 85730; 87636; 71046; G0378 ×2; J2270 ×2

== ENCOUNTER 2023-06-04 06:02 | Day surgery (SDC) | payer BC ==
[2023-05-16 16:04] VITALS: BMI 28.0
[~2023-06-04 06:02] MED LIST changes: +ACETAMINOPHEN TAB 500 MG TAB PO PRN; -ALBUTEROL NEB (CONC) 2.5 MG/0.5 ML INHALATION ONE; -ATROPINE SULFATE 0.4 MG/ML 1 ML VIAL IM ONE; +DEXAMETHASONE SOD PHOSPHATE 4 MG/ML 1 ML VIAL IV ONE; +HEPARIN SODIUM,PORCINE/PF 5,000 UNIT/0.5 ML SYRINGE SQ PRN; +HYDROmorphone 0.5 MG/0.5 ML SYRINGE IVP PRN; +LIDOCAINE 1% (10MG/ML) FOR IV START INTRADERMA PRN; -LIDOCAINE 1% 20 ML VIAL (10MG/ML) FOR IV START INTRADERMA PRN; -LIDOCAINE 2% (PF) 20 MG/ML 5 ML VIAL INHALATION ONE; -LIDOCAINE VISCOUS 300 MG/15 ML CUP MUCOUS MEM ONE; +ONDANSETRON 4 MG/2 ML VIAL IVP ONE; +Pre Op ABX Message 1 EACH MISC MISCELLANE ONE; +SCOPOLAMINE 1 MG/72 HR PATCH TRANSDERM ONE; -SODIUM CHLORIDE 0.9% 1,000 ML IV SCH; +droPERidol 5 MG/2 ML VIAL IVP ONE
[2023-06-04] MEDS ORDERED: MIDAZOLAM 2 MG/2 ML VIAL ONE (07:23)
[2023-06-04] MEDS ORDERED: fentaNYL (PF) 50 MCG/ML 2 ML AMP ONE (07:23)
[2023-06-04] MEDS ORDERED: KETOROLAC 15 MG/ML 1 ML VIAL ONE (07:23)
[2023-06-04] MEDS ORDERED: LIDOCAINE 2% INJ 20 MG/ML (2 ML VIAL) ONE (07:23)
[2023-06-04] MEDS ORDERED: SUCCINYLCHOLINE CHLORIDE 200 MG/10 ML VIAL IV ONE (07:23)
[2023-06-04] MEDS ORDERED: PROPOFOL 10 MG/ML 20 ML VIAL IV ONE (07:23)
[2023-06-04] MEDS ORDERED: SODIUM CHLORIDE 0.9% 100 ML BAG ONE (07:28)
[2023-06-04] MEDS ORDERED: ceFAZolin 1,000 MG VIAL ONE (07:28)
[2023-06-04] MEDS ORDERED: BUPIVACAINE (PF) 0.25% 30 ML VIAL SQ ONE (08:04)
[2023-06-04] MEDS ORDERED: GELATIN SPONGE,ABSORB (LARGE) 1 EACH SPONGE TOPICAL ONE (08:04)
--- NOTE | 2023-06-04 08:14 | P.OP ---
Date of Procedure: 06/04/23 Preoperative Diagnosis: Internal and external hemorrhoids Postoperative Diagnosis: Internal and external hemorrhoids Procedure(s) Performed: Internal and external hemorrhoidectomy Anesthesia: MARIANELA Surgeon: Filippo Cameron Estimated Blood Loss (ml): 5 Pathology: other (Hemorrhoids) Condition: stable Disposition: PACU Description of Procedure: The patient's placed on the operating table in the prone jackknife position. She had received general endotracheal anesthesia. Her anus was prepped and draped in usual sterile fashion. The endotracheal placed anus. The left lateral hemorrhoidal column was grasped with pair of Allis clamps. Then using the Harmonic scissors the hemorrhoidectomy is performed. Next the right anterior and right posterior hemorrhoidal column were dissected free dental fashion. The anus). There is no bleeding seen. The anus was then packed with Gelfoam. Patient tolerated well she was sent to recovery room in stable condition.
[2023-06-04 08:21] VITALS: TEMP 97
[2023-06-04 08:33] VITALS: RESP 16
[2023-06-04] MEDS ORDERED: LACTATED RINGERS 1,000 ML IV ONE (09:00)
[2023-06-04 10:15] VITALS: BP 116/73; PULSE 72
== END 2023-06-04 11:25 | disposition home or self-care (01) ==
LOC: OR 06:02
PROVIDERS: ATTEND Surgery
DX: K64.4 Residual hemorrhoidal skin tags (principal); K64.8 Other hemorrhoids; I10 Essential (primary) hypertension; G47.33 Obstructive sleep apnea (adult) (pediatric); F41.9 Anxiety disorder, unspecified; F32.A Depression, unspecified; K21.9 Gastro-esophageal reflux disease without esophagitis; Z79.899 Other long term (current) drug therapy
CPT/HCPCS: 81025; 88304; 46260; J2250; J0330; J1100; J2405; J0690; J3010; J1885; J2704; J1644; J2001

== ENCOUNTER 2023-09-16 08:27 | Emergency (ER) | payer BC ==
[2023-09-16 08:38] VITALS: TEMP 98.1
[2023-09-16] MEDS ORDERED: SODIUM CHLORIDE 0.9% 500 ML 500 ML IV STA (08:42)
[2023-09-16] MEDS ORDERED: METOPROLOL SUCCINATE (ER) 50 MG TAB.ER.24H PO STA (08:50)
[2023-09-16 09:06] LABS: Basophils % (A) 0 %; Eosinophils # (A) 0.1 k/uL (0-0.7); Eosinophils % (A) 2 %; HCT 43.7 % (34.0-46.0); HGB 14.8 gm/dL (11.4-16.0); Lymphocytes # (A) 0.9 k/uL (1.0-4.8); Lymphocytes % (A) 18 %; MCH 31.7 pg (25.0-35.0); MCV 93.3 fL (80.0-100.0); Mean Platelet Volume 8.2; Monocytes # (A) 0.3 k/uL (0-1.0); Monocytes % (A) 5 %; Neutrophils # (A) 3.7 k/uL (1.3-7.7); Neutrophils % (A) 74 %; Platelet Count 194 k/uL (150-450); RBC 4.69 m/uL (3.80-5.40)
--- NOTE | 2023-09-16 09:11 | XR ---
EXAMINATION TYPE: XR chest 2V DATE OF EXAM: 09/16/2023 9:08 AM CLINICAL INDICATION:Female, 48 years old with history of dysrhythmia; [facility] COMPARISON: Chest radiographs from 11/26/2022. TECHNIQUE: XR chest 2V Frontal and lateral views of the chest. FINDINGS: Lungs/Pleura: There is no evidence of pleural effusion, focal consolidation, or pneumothorax. Pulmonary vascularity: Unremarkable. Heart/mediastinum: Cardiomediastinal silhouette is unremarkable. Musculoskeletal: No acute osseous pathology. IMPRESSION: No acute cardiopulmonary disease/process.
[2023-09-16 09:16] LABS: ALT 15 U/L (4-34); AST 19 U/L (14-36); African American GFR (CKD) >90 (>60 ml/min/1.73 sqM); Albumin 4.3 g/dL (3.5-5.0); Alkaline Phosphatase 44 U/L (38-126); Anion Gap 11 mmol/L; Blood Urea Nitrogen 10 mg/dL (7-17); Calcium 9.6 mg/dL (8.4-10.2); Carbon Dioxide 22 mmol/L (22-30); Chloride 105 mmol/L (98-107); Glucose 89 mg/dL (74-99); Magnesium 1.9 mg/dL (1.6-2.3); Non-African American GFR(CKD) >90 (>60 ml/min/1.73 sqM); Potassium 3.7 mmol/L (3.5-5.1); Sodium 138 mmol/L (137-145); Total Bilirubin 0.7 mg/dL (0.2-1.3); Total Protein 7.4 g/dL (6.3-8.2)
--- NOTE | 2023-09-16 09:17 | ED ---
Arrhythmia/Palpitations HPI - General Chief Complaint: Arrhythmia/Palpitations Stated Complaint: heart racing Time Seen by Provider: 09/16/23 08:38 Source: patient, RN notes reviewed Mode of arrival: ambulatory Limitations: no limitations - History of Present Illness Initial Comments: 48-year-old female presents emergency Department with chief complaint of palpitations. Patient states she suffers of palpitations is on metoprolol and sees cardiology states that she just felt off this morning so she checked her watch in which it read A. fib. Patient states that she waited 30 minutes and checked again and he continued read A. fib. She states her heart rate was in the 150s which is not out of the usual for her. Patient denies any chest pain she states she did feel shaky, lightheaded. Denies any shortness breath or leg swelling no recent medication changes no excessive caffeine intake. - Related Data Home Medications Medication Instructions Recorded Confirmed ALPRAZolam [Xanax] 0.25 mg PO TID PRN 03/22/19 06/04/23 Pantoprazole Sodium [Protonix] 40 mg PO DAILY 03/22/19 06/04/23 Metoprolol Succinate [Toprol XL] 75 mg PO W/SUPPER 11/26/22 06/04/23 Semaglutide [Wegovy] 1.7 mg SQ TU 05/16/23 06/04/23 Previous Rx's Medication Instructions Recorded Acetaminophen Tab [Tylenol] 650 mg PO Q6H #30 tab 06/04/23 Docusate [Colace] 100 mg PO BID #20 capsule 06/04/23 Ibuprofen [Motrin] 600 mg PO Q6HR PRN #40 tab 06/04/23 oxyCODONE HCL [OxyIR] 5 mg PO Q6H PRN 3 Days #10 tab 06/04/23 Allergies Allergy/AdvReac Type Severity Reaction Status Date / Time No Known Allergies Allergy Verified 05/16/23 15:57 Review of Systems ROS Statement: Those systems with pertinent positive or pertinent negative responses have been documented in the HPI. ROS Other: All systems not noted in ROS Statement are negative. Past Medical History Past Medical History: GERD/Reflux, Hypertension Additional Past Medical History / Comment(s): hemorrhoids,uterine prolapse,pt states "having pain describing feeling like a uti or problems with uterine prolapse-has an appointment at [facility] software sales consultant today (05-20-23)-will notify Dr Cameron after appointment if needing to cancel.pneumothorax-20 years ago., migraines, palpitations, tachycardia, dry cough since May 2019, hiatal hernia, Covid infection Nov 2022(has had covid infections 3 times) History of Any Multi-Drug Resistant Organisms: None Reported Additional Past Surgical History / Comment(s): pneumothorax chest tube,parathyroid surgery r/t elevated calcium Past Anesthesia/Blood Transfusion Reactions: Family History of Problems w/ Anesthesia, Motion Sickness, Postoperative Nausea & Vomiting (PONV) Additional Past Anesthesia/Blood Transfusion Reaction / Comment(s): mom is hard to wake up,no hx blood transfusion Past Psychological History: Anxiety, Depression Smoking Status: Never smoker Past Alcohol Use History: None Reported Past Drug Use History: None Reported - Past Family History Mother Family Medical History: No Reported History Father Family Medical History: Myocardial Infarction ([place]) Additional Family Medical History / Comment(s): at age 53. General Exam Limitations: no limitations General appearance: alert, in no apparent distress Head exam: Present: atraumatic, normocephalic, normal inspection Eye exam: Present: normal appearance, PERRL, EOMI. Absent: scleral icterus, conjunctival injection, periorbital swelling ENT exam: Present: normal exam, normal oropharynx, mucous membranes moist Neck exam: Present: normal inspection, full ROM. Absent: tenderness, meningismus, lymphadenopathy Respiratory exam: Present: normal lung sounds bilaterally. Absent: respiratory distress, wheezes, rales, rhonchi, stridor Cardiovascular Exam: Present: normal rhythm, tachycardia, normal heart sounds. Absent: systolic murmur, diastolic murmur, rubs, gallop, clicks GI/Abdominal exam: Present: soft, normal bowel sounds. Absent: distended, tenderness, guarding, rebound, rigid Course Vital Signs 09/16/23 08:29 Temperature 98.1 F Pulse Rate 98 Respiratory 16 Rate Blood Pressure 137/95 O2 Sat by Pulse 99 Oximetry EKG Findings - EKG Comments: EKG Findings:: EKG performed at 8:48 sinus rhythm with a rate of 97 [place] 154 QRS 78 QT/QTC 332/386 - EKG Results: EKG: interpreted by IVANNA Medical Decision Making - Medical Decision Making Was pt. sent in by a medical professional or institution (, PA, WAREHOUSE GUARD, urgent care, hospital, or fdc...) When possible be specific @ -No Did you speak to anyone other than the patient for history (EMS, parent, family, police, friend...)? What history was obtained from this source @ -No Did you review nursing and triage notes (agree or disagree)? Why? @ -I reviewed and agree with nursing and triage notes Were old charts reviewed (outside hosp., previous admission, EMS record, old EKG, old radiological studies, urgent care reports/EKG's, fdc records)? Report findings @ -No old charts were reviewed Differential Diagnosis (chest pain, altered mental status, abdominal pain women, abdominal pain men, vaginal bleeding, weakness, fever, dyspnea, syncope, headache, dizziness, GI bleed, back pain, seizure, CVA, palpatations, mental health, musculoskeletal)? @ -nDifferential Palpitations Ventricular arrhythmias, atrial arrhythmias, myocardial infarction, anemia, thyrotoxicosis, electrolyte imbalance, hypokalemia, pulmonary embolism, pulmonary disease, drugs, alcohol, anxiety, stress.... This is not meant to be an all-inclusive list.le EKG interpreted by me (3pts min.). @ -As above X-rays interpreted by me (1pt min.). @ -[Chest x-ray shows no acute cardio pulmonary process CT interpreted by me (1pt min.). @ -None done U/S interpreted by me (1pt. min.). @ -None done What testing was considered but not performed or refused? (CT, X-rays, U/S, labs)? Why? @ -None What meds were considered but not given or refused? Why? @ -None Did you discuss the management of the patient with other professionals (professionals i.e. EILEEN Colmenares, WAREHOUSE GUARD, lab, RT, psych nurse, geriatric social worker, attorney lawyer, te acher, policy officer, caseworker protective services)? Give summary @ -No Was smoking cessation discussed for >3mins.? @ -No Was critical care preformed (if so, how long)? @ -No Were there social determinants of health that impacted care today? How? (Homelessness, low income, unemployed, alcoholism, drug addiction, transportation, low edu. Level, literacy, decrease access to med. care, long-term, rehab)? @ -No Was there de-escalation of care discussed even if they declined (Discuss DNR or withdrawal of care, Hospice)? DNR status @ -No What co-morbidities impacted this encounter? (DM, HTN, Smoking, COPD, CAD, Cancer, CVA, ARF, Chemo, Hep., AIDS, mental health diagnosis, sleep apnea, morbid obesity)? @ -Palpitations Was patient admitted / discharged? Hospital course, mention meds given and route, prescriptions, significant lab abnormalities, going to OR and other pertinent info. @ -Discharged patient's workup including labs, EKG and chest x-rays unremarkable patient has benign ekg monitor tech showing hives heart rate 110 there is no runs of A. fib or irregular rhythm. Patient will follow-up with cardiology she has been in contact with her caponizer already. She was given her metoprolol dose that she did not take last night. Undiagnosed new problem with uncertain prognosis? @ -No Drug Therapy requiring intensive monitoring for toxicity (Heparin, Nitro, Insulin, Cardizem)? @ -No Were any procedures done? @ -No Diagnosis/symptom? @ -[Palpitations Acute, or Chronic, or Acute on Chronic? @ -Acute Uncomplicated (without systemic symptoms) or Complicated (systemic symptoms)? @ -, Complicated Side effects of treatment? @ -No Exacerbation, Progression, or Severe Exacerbation? @ -No Poses a threat to life or bodily function? How? (Chest pain, [place], [place], pneumonia, PE, COPD, DKA, ARF, appy, cholecystitis, CVA, Diverticulitis, Homicidal, Suicidal, threat to staff... and all critical care pts) @ -No - Lab Data Result diagrams: 09/16/23 08:50 09/16/23 08:50 Lab Results 09/16/23 09/16/23 09/16/23 Range/Units 08:50 08:50 08:50 WBC 5.0 (3.8-10.6) k/uL RBC 4.69 (3.80-5.40) m/uL Hgb 14.8 (11.4-16.0) gm/dL Hct 43.7 (34.0-46.0) % MCV 93.3 (80.0-100.0) fL MCH 31.7 (25.0-35.0) pg MCHC 34.0 (31.0-37.0) g/dL RDW 12.0 (11.5-15.5) % Plt Count 194 (150-450) k/uL MPV 8.2 Neutrophils % 74 % Lymphocytes % 18 % Monocytes % 5 % Eosinophils % 2 % Basophils % 0 % Neutrophils # 3.7 (1.3-7.7) k/uL Lymphocytes # 0.9 L (1.0-4.8) k/uL Monocytes # 0.3 (0-1.0) k/uL Eosinophils # 0.1 (0-0.7) k/uL Basophils # 0.0 (0-0.2) k/uL PT 11.3 (10.0-12.5) sec INR 1.0 (<1.2) APTT 27.5 (22.0-30.0) sec Sodium 138 (137-145) mmol/L Potassium 3.7 (3.5-5.1) mmol/L Chloride 105 (98-107) mmol/L Carbon Dioxide 22 (22-30) mmol/L Anion Gap 11 mmol/L BUN 10 (7-17) mg/dL Creatinine 0.59 (0.52-1.04) mg/dL Est GFR (CKD-EPI)AfAm >90 (>60 ml/min/1.73 sqM) Est GFR (CKD-EPI)NonAf >90 (>60 ml/min/1.73 sqM) Glucose 89 (74-99) mg/dL Calcium 9.6 (8.4-10.2) mg/dL Magnesium 1.9 (1.6-2.3) mg/dL Total Bilirubin 0.7 (0.2-1.3) mg/dL AST 19 (14-36) U/L ALT 15 (4-34) U/L Alkaline Phosphatase 44 (38-126) U/L Troponin I (0.000-0.034) ng/mL Total Protein 7.4 (6.3-8.2) g/dL Albumin 4.3 (3.5-5.0) g/dL 09/16/23 Range/Units 08:50 WBC (3.8-10.6) k/uL RBC (3.80-5.40) m/uL Hgb (11.4-16.0) gm/dL Hct (34.0-46.0) % MCV (80.0-100.0) fL MCH (25.0-35.0) pg MCHC (31.0-37.0) g/dL RDW (11.5-15.5) % Plt Count (150-450) k/uL MPV Neutrophils % % Lymphocytes % % Monocytes % % Eosinophils % % Basophils % % Neutrophils # (1.3-7.7) k/uL Lymphocytes # (1.0-4.8) k/uL Monocytes # (0-1.0) k/uL Eosinophils # (0-0.7) k/uL Basophils # (0-0.2) k/uL PT (10.0-12.5) sec INR (<1.2) APTT (22.0-30.0) sec Sodium (137-145) mmol/L Potassium (3.5-5.1) mmol/L Chloride (98-107) mmol/L Carbon Dioxide (22-30) mmol/L Anion Gap mmol/L BUN (7-17) mg/dL Creatinine (0.52-1.04) mg/dL Est GFR (CKD-EPI)AfAm (>60 ml/min/1.73 sqM) Est GFR (CKD-EPI)NonAf (>60 ml/min/1.73 sqM) Glucose (74-99) mg/dL Calcium (8.4-10.2) mg/dL Magnesium (1.6-2.3) mg/dL Total Bilirubin (0.2-1.3) mg/dL AST (14-36) U/L ALT (4-34) U/L Alkaline Phosphatase (38-126) U/L Troponin I <0.012 (0.000-0.034) ng/mL Total Protein (6.3-8.2) g/dL Albumin (3.5-5.0) g/dL Disposition Clinical Impression: Palpitations Disposition: HOME SELF-CARE Condition: Stable Instructions (If sedation given, give patient instructions): Heart Palpitations (ED) Additional Instructions: Please return to the Emergency Department if symptoms worsen or any other concerns. Is patient prescribed a controlled substance at d/c from ED?: No Referrals: Raymon Roca MD [Primary Care Provider] - 1-2 days Time of Disposition: 09:56
[2023-09-16 09:29] LABS: Partial Thromboplastin Time 27.5 sec (22.0-30.0); Prothrombin Time 11.3 sec (10.0-12.5)
[2023-09-16 10:36] VITALS: BP 134/83; PULSE 82; RESP 20
== END 2023-09-16 10:25 | disposition home or self-care (01) ==
LOC: EC 08:27
DX: R00.2 Palpitations (principal); I10 Essential (primary) hypertension; K21.9 Gastro-esophageal reflux disease without esophagitis; F32.A Depression, unspecified; F41.9 Anxiety disorder, unspecified; Z79.899 Other long term (current) drug therapy; Z86.16 Personal history of COVID-19
CPT/HCPCS: 36415; 71046; 80053; 83735; 84484; 85025; 85610; 85730; 93005; 96360; 99285

== ENCOUNTER → 2023-10-02 | Outpatient (CLI) | payer BC ==
--- NOTE | 2023-10-02 09:41 | US ---
EXAMINATION TYPE: US abdomen complete DATE OF EXAM: 10/02/2023 COMPARISON: 12/03/2019 CLINICAL INDICATION: Female, 48 years old with history of R10.11 RIGHT UPPER QUADRANT PAIN; RUQ pain TECHNIQUE: Multiple sonographic images of the abdomen are obtained. FINDINGS: EXAM MEASUREMENTS: Liver Length: 11.4 cm Gallbladder Wall: 0.2 cm CBD: 0.6 cm Spleen: 11.8 cm Right Kidney: 9.2 x 4.5 x 3.9 cm Left Kidney: 9.8 x 4.7 x 3.9 cm Pancreas: wnl Liver: wnl Gallbladder: wnl Evidence for sonographic Swenson's sign: No CBD: wnl Spleen: wnl Right Kidney: wnl Left Kidney: wnl Upper IVC: wnl Abd Aorta: wnl The liver is homogenous. The intrahepatic portion of the IVC and proximal abdominal aorta are within normal limits. There is no evidence of cholelithiasis. Common bile duct is unremarkable. The visu alized portions of the pancreas are homogenous. The spleen is unremarkable. Kidneys are symmetric a nd free of hydronephrosis. No renal lesions are seen. IMPRESSION: No evidence for acute process.
== END | disposition home or self-care (01) ==
LOC: RADUSWWP 09:05
PROVIDERS: ATTEND Family Medicine
DX: R10.11 Right upper quadrant pain (principal)
CPT/HCPCS: 76700

== ENCOUNTER 2023-10-13 07:24 | Day surgery (SDC) | payer BC ==
[~2023-10-13 07:24] MED LIST changes: -DEXAMETHASONE SOD PHOSPHATE 4 MG/ML 1 ML VIAL IV ONE; -HYDROmorphone 0.5 MG/0.5 ML SYRINGE IVP PRN; -LACTATED RINGERS 1,000 ML IV SCH; -LIDOCAINE 1% (10MG/ML) FOR IV START INTRADERMA PRN; -ONDANSETRON 4 MG/2 ML VIAL IVP ONE; -SCOPOLAMINE 1 MG/72 HR PATCH TRANSDERM ONE; -droPERidol 5 MG/2 ML VIAL IVP ONE
[2023-10-13] MEDS ORDERED: HYDROmorphone 0.5 MG/0.5 ML SYRINGE IVP PRN (07:36)
[2023-10-13] MEDS ORDERED: MIDAZOLAM 2 MG/2 ML VIAL IV PRN (07:36)
[2023-10-13] MEDS ORDERED: LACTATED RINGERS 1,000 ML IV SCH (07:36)
[2023-10-13] MEDS ORDERED: DEXAMETHASONE SOD PHOSPHATE 4 MG/ML 1 ML VIAL IV ONE (07:36)
[2023-10-13] MEDS ORDERED: ONDANSETRON 4 MG/2 ML VIAL IVP ONE (07:36)
[2023-10-13] MEDS ORDERED: SCOPOLAMINE 1 MG/72 HR PATCH TRANSDERM ONE (07:36)
[2023-10-13] MEDS ORDERED: MIDAZOLAM 2 MG/2 ML VIAL ONE (09:20)
[2023-10-13] MEDS ORDERED: PROPOFOL 10 MG/ML 20 ML VIAL IV ONE (09:20)
[2023-10-13] MEDS ORDERED: KETAMINE HCL IN 0.9 % NACL 50 MG/5 ML SYRINGE ONE (09:20)
[2023-10-13] MEDS ORDERED: fentaNYL (PF) 50 MCG/ML 2 ML AMP ONE (09:20)
[2023-10-13] MEDS ORDERED: BUPIVACAIN-EPI 0.5%-1:200,000 30 ML VIAL SQ ONE (09:44)
[2023-10-13 10:04] VITALS: TEMP 97.5
--- NOTE | 2023-10-13 10:30 | P.OP ---
Date of Procedure: 10/13/23 Preoperative Diagnosis: Anal fissure Postoperative Diagnosis: Anal fissure Procedure(s) Performed: Exam under anesthesia Anesthesia: MARIANELA Surgeon: Filippo Cameron Pathology: none sent Condition: stable Disposition: PACU Description of Procedure: The patient's placed on the operative table in the prone jackknife position. She received IV sedation. Her anus was examined. There were a few small noninflamed external hemorrhoids noted. The anal retractors placed anus. Next the 6 o'clock position there appeared to be a nonhealing area where there was an anal fissure. This was in the area the previous hymenectomy. The remainder the anus appeared normal. At this point the interatrial withdrawn. Patient top she will was sent to recovery room stable condition.
[2023-10-13 10:35] VITALS: RESP 16
[2023-10-13 11:38] VITALS: BP 119/71; PULSE 79
== END 2023-10-13 11:46 | disposition home or self-care (01) ==
LOC: OR 07:24
PROVIDERS: ATTEND Surgery
DX: K60.2 Anal fissure, unspecified (principal); K64.4 Residual hemorrhoidal skin tags; I10 Essential (primary) hypertension; G43.909 Migraine, unspecified, not intractable, without status migrainosus; E07.9 Disorder of thyroid, unspecified; F32.A Depression, unspecified; F41.9 Anxiety disorder, unspecified; K21.9 Gastro-esophageal reflux disease without esophagitis; Z79.1 Long term (current) use of non-steroidal anti-inflammatories (NSAID); Z79.899 Other long term (current) drug therapy; Z98.890 Other specified postprocedural states
CPT/HCPCS: 81025; 45990; J2250; J1100; J2405; J3010; J2704

== ENCOUNTER → 2024-08-09 | Outpatient (CLI) | payer BC ==
[2024-08-09 21:17] LABS: T4, Free (Free Thyroxine) 1.35 ng/dL (0.80-1.80)
[2024-08-09 22:39] LABS: Gliadin AB IgA, Deaminated Negative (Negative); Gliadin AB IgA, Unit 11.1 U/mL; Gliadin AB IgG, Deaminated Negative (Negative); Gliadin AB IgG, Unit <0.4 U/mL
== END ==
LOC: LABWHC1 16:09
PROVIDERS: ATTEND Internal Medicine Endocrinology, Diabetes & Metabolism
DX: R10.9 Unspecified abdominal pain (principal); E04.2 Nontoxic multinodular goiter
CPT/HCPCS: 36415; 82308; 83516; 84439; 84443

== ENCOUNTER → 2025-03-16 | Outpatient (CLI) | payer BC ==
--- NOTE | 2025-03-16 16:31 | XR ---
EXAMINATION TYPE: XR sacrum coccyx DATE OF EXAM: 03/16/2025 4:26 PM INDICATION: Patient age:Female; 49 years old; Reason for study: M53.3 SACROCOCCYGEAL DISORDERS, NOT ELSEWHERE CLAS; PHH. pain COMPARISON: Lumbosacral spine radiograph 10/27/2016 TECHNIQUE: The sacrum/coccyx was examined in 3 projections. FINDINGS: There is no evidence of fracture or dislocation. There is no soft tissue abnormality. No a bnormal calcifications are present. Both SI joints appear intact. Disc space narrowing with endplate sclerosis at L5-S1. IMPRESSION: 1. No acute osseous pathology. 2. Moderate degenerative disc disease at L5-S1. [facility], , 03/16/2025 4:29 PM
== END | disposition home or self-care (01) ==
LOC: RADXRMAIN 16:05
PROVIDERS: ATTEND Family Medicine
DX: M53.3 Sacrococcygeal disorders, not elsewhere classified (principal); M51.379 Other intervertebral disc degeneration, lumbosacral region without mention of lumbar back pain or lower extremity pain
CPT/HCPCS: 72220